=== PATIENT | female | born 1980 | race African-American/Black ===

== ENCOUNTER 2024-09-16 00:45 | Day surgery (SDC) | payer OTHER, SELFPAY ==
--- OUTSIDE RECORDS SUMMARY | 2024-09-16 00:48 | XMS_ITS | Patient Health Summary ---
Author Organization [facility] Address [address] [place] [address] Care Team Providers Care Packing Inspector Name Role Phone Unavailable Primary Care Provider Unavailabl e Note from [facility],non-owned Affiliates and Associated Physician Practices is amultiple site organization consisting of ambulatory clinics and hospital sitesin [place], [place], [place] and [place]. This disclosure is being madepursuant to the Care Everywhere program and may not contain all information available regarding this patient. Last updated 18.[facility] Social History Tobacco Use Types Packs/Day Years Used Date Smoking Tobacco: Never Alcohol Use Standard Drinks/Week Comments No 0 (1 standard drink = 0.6 oz pur e alcohol) Sex and Gender Information Value Date Recorded Sex Assigned at Not on file Gender Identity Not on file Sexual Orientation Not on file Last Filed Vital Signs Vital Sign Reading Time Taken Comments Blood Pressure 138/81 09/11/2014 1:36 PM SALES DEVELOPMENT MANAGER Pulse 86 09/11/2014 1:36 PM SALES DEVELOPMENT MANAGER Temperature 36.2 C (97.1 F) 09/11/2014 1:36 PM SALES DEVELOPMENT MANAGER Respiratory Rate 18 09/11/2014 1:36 PM SALES DEVELOPMENT MANAGER Oxygen Saturation 96% 09/11/2014 1:36 PM SALES DEVELOPMENT MANAGER Inhaled Oxygen Concentration - - Weight 122.5 kg (270 lb) 09/11/2014 1:36 PM SALES DEVELOPMENT MANAGER Height 162.6 cm (5' 4 ) 09/11/2014 1:36 PM SALES DEVELOPMENT MANAGER Body Mass Index 46.35 09/11/2014 1:36 PM SALES DEVELOPMENT MANAGER Procedures * XR WRIST LEFT 3VW OR MORE(Performed 09/11/2014) * CULTURE AEROBIC(Performed 07/02/2014) Results * XR WRIST LEFT 3VW OR MORE (09/11/2014 2:24 PM SALES DEVELOPMENT MANAGER) Anatomical Region Laterality Modality Wrist / Hand Other Impressions 09/11/2014 3:30 PM SALES DEVELOPMENT MANAGER IMPRESSION: 1. No acute osseous injury. Report dictated by Yuki Patrick M.D. I, Dr. ELISEO PRICE M.D. have personally reviewed and interpreted this examination/study. This report was electronically signed by ELISEO PRICE M.D. on 09/11/2014 3:30 PM . Narrative 09/11/2014 3:30 PM SALES DEVELOPMENT MANAGER EXAM: Left wrist, 3 views (PA, oblique, lateral) HISTORY: Nontraumatic wrist pain COMPARISON: None available FINDINGS: No acute fracture or dislocation is identified. A well-corticated 4 mm osseous fragment superior to the ulnar styloid may represent an accessory ossicle or sequela of prior injury. The joint spaces are normal. There is mild soft tissue swelling in the dorsal aspect of the distal forearm. Procedure Note Eliseo Price MD - 10/05/2017 EXAM: Left wrist, 3 views (PA, oblique, lateral) HISTORY: Nontraumatic wrist pain COMPARISON: None available FINDINGS: No acute fracture or dislocation is identified. A well-corticated 4 mmosseous fragment superior to the ulnar styloid may represent an accessoryossicle or sequela of prior injury. The joint spaces are normal. There ismild soft tissue swelling in the dorsal aspect of the distal forearm. IMPRESSION IMPRESSION: 1. No acute osseous injury. Report dictated by Yuki Patrick M.D. I, Dr. ELISEO PRICE M.D. have personally reviewed and interpreted thisexamination/study. This report was electronically signed by ELISEO PRICE M.D. on 09/11/20143:30 PM . Ean Linda MedinaWard DO DIAGNOSTIC IMAGING O RDERABLES * CULTURE AEROBIC (07/02/2014 10:00 PM SALES DEVELOPMENT MANAGER) Culture Aerobic No Growth at 24 hours [facility] Culture Aerobic Growth after 48 hours of urogenital/s kin alexis [facility] Gram Stain Many Gram variable bacilli [facility] Gram Stain Few Gram positive cocci in pairs [facility] Vagina 07/02/2014 10:0 0 PM SALES DEVELOPMENT MANAGER 07/03/2014 9:46 AM SALES DEVELOPMENT MANAGER Narrative [facility] - 07/06/2014 11:35 AM SALES DEVELOPMENT MANAGER AndersonSpecimen#[id number] Ghanshyam Loc/Rm/Bed: ED// GI LAB Source: endocervical Gram Stains are routinely screened for the presence of Polymorphonuclear Cells. Historical Provider LAB - MICROBIOLOG Y ORDERABLES [facility] [address] [phone]
--- OUTSIDE RECORDS SUMMARY | 2024-09-16 00:48 | XMS_ITS | Clinical Summary ---
Author Organization [facility] Address [address] [place] [address] Care Team Providers Care Automation And Controls Manager Name Role Phone Rachel Stone NP Primary Care Provider [phone] [phone] Allergies Active Allergy Reactions Criticality Noted Date Comments Latex Rash Medium 10/27/2021 Morphine Mental status changes Low 01/23/2020 Medications albuterol HFA (PROVENTIL HFA,VENTOLIN HFA,PROAIR HFA) 90 mcg/actuation inhaler Inhale 2 puffs every 4 (four) hours as needed for wheezing 1 each 03/29/20 21 Active losartan (COZAAR) 25 mg tablet Take 1 tablet (25 mg total) by mouth daily 60 tablet 10/28/19 22 Active lidocaine (LIDODERM) 5 % Place 1 patch on the skin daily for 7 days Remove & discard patch within 12 hours or as directed by MD. 7 patch 04/29/20 23 Active cyanocobalamin (Vitamin B-12) 1,000 mcg/mL injection Inject 1 mL (1,000 mcg total) into the muscle as instructed once a week 07/20/19 25 Active ferrous sulfate 325 mg (65 mg of elemental iron) tablet Take 1 tablet (325 mg total) by mouth daily with breakfast 10/04/19 23 Active Lactobacillus acidophilus 500 million cell tablet Take 1 tablet every day by oral route for 30 days. 07/24/19 25 Active phentermine (ADIPEX-P) 37.5 mg tabletIndicatio ns:Weight Loss Management for Obese Patient (BMI >= 30) Take 1 tablet (37.5 mg total) by mouth daily before breakfast 30 tablet 2 08/11/19 25 025 Active hydroCHLOROthia zide (HYDRODIURIL) 25 mg tablet Take 1 tablet (25 mg total) by mouth daily 30 tablet 01/31/20 21 021 Discontinued Active Problems Problem Noted Date Diagnosed Date Class 3 severe obesity due t o excess calories without serious comorbidity with body mass index (BMI) of 45.0 to 49.9 in adult 08/11/2024 Encounters Date Type Department Care Team Description 08/11/2024 1:15 PM SUPERVISOR RESIDENTIAL Office Visit [facility] Family Medicine at [address] [address] Scottie Valdes MD Class 3 severe obesity due to excess calories without serious comorbidity with body mass index (BMI) of 45.0 to 49.9 in adult (HCC) (Primary Dx) 08/03/2024 12:00 PM SUPERVISOR RESIDENTIAL - 08/03/2024 11:59 PM SUPERVISOR RESIDENTIAL Hospital Encounter [facility] Diagnostic Imaging [address] [place] [address] Pain in joint of right knee; Pain in joint of left knee Discharge Disposition: Discharge to home or self care 07/31/2024 Telephone [facility] Family Medicine at [address] [phone] Rachel Stone DIRECTOR OF SCIENCE Lvm to schedule for new patient for wt mngt and seminar from Last 3 Months Social History Tobacco Use Types Packs/Day Years Used Date Smoking Tobacco: Some Days Alcohol Use Standard Drinks/Week Comments Yes 0 (1 standard drink = 0.6 oz pur e alcohol) Personal Safety Answer Date Recorded Have you ever been in or are you currently in a harmful physical or emotional relationship or is someone making you feel afraid or unsafe? Denies 04/29/2023 Comments No Sex and Gender Information Value Date Recorded Sex Assigned at Not on file Legal Sex Female 9:11 PM SUPERVISOR RESIDENTIAL Gender Identity Not on file Sexual Orientation Not on file Obstetrics History Last Filed Vital Signs Vital Sign Reading Time Taken Comments Blood Pressure 126/84 08/11/2024 1:18 PM SUPERVISOR RESIDENTIAL Pulse 84 08/11/2024 1:18 PM SUPERVISOR RESIDENTIAL Temperature 36.9 C (98.4 F) 08/11/2024 1:18 PM SUPERVISOR RESIDENTIAL Respiratory Rate 16 08/11/2024 1:18 PM SUPERVISOR RESIDENTIAL Oxygen Saturation 95% 08/11/2024 1:18 PM SUPERVISOR RESIDENTIAL Inhaled Oxygen Concentration - - Weight 130.2 kg (287 lb 1.6 oz) 08/11/2024 1:18 PM SUPERVISOR RESIDENTIAL Height 162.6 cm (5' 4 ) 08/11/2024 1:18 PM SUPERVISOR RESIDENTIAL Body Mass Index 49.28 08/11/2024 1:18 PM SUPERVISOR RESIDENTIAL Plan of Treatment Health Maintenance Due Date Last Done Comments Breast Cancer Screening-Mammogram 1979 Cervical Cancer Screening 1979 Depression Screening 1979 Hepatitis C Screening 1979 DTaP/Tdap/Td Vaccine (1 - Tdap) 09/18/1990 Varicella Vaccines (1 of 2 - 13+ 2-dose series) 09/18/1992 Hepatitis B Screening 09/18/1997 Regular Well Visit/Exam 18-64 09/18/1997 Pneumococcal vaccine <65 (1 of 2 - PCV) 09/18/1998 Covid-19 Vaccine (3 - 2023-2 5 season) 2024 10/27/2021, 07/04/2021 Influenza Vaccine (#1) 2024 HPV Vaccines Aged Out No longer eligi ble based on patient's age to complete this topic Procedures Procedure Name Priority Date/Time Associated Diagnosis Comments XR KNEE LEFT 3 VIEWS Schedule Routine, Read Routine (OP Routine) 08/03/2024 12:35 PM SUPERVISOR RESIDENTIAL Pain in joint of left knee XR KNEE RIGHT 3 VIEWS Schedule Routine, Read Routine (OP Routine) 08/03/2024 12:35 PM SUPERVISOR RESIDENTIAL Pain in joint of right knee from Last 3 Months Results * XR Knee Right 3 Views (08/03/2024 12:35 PM SUPERVISOR RESIDENTIAL) Anatomical Region Laterality Modality Lower Extremities, Knee Right Computed Radiography 08/03/2024 5:30 PM SUPERVISOR RESIDENTIAL Narrative 08/03/2024 5:31 PM SUPERVISOR RESIDENTIAL EXAM DESCRIPTION: XR KNEE RIGHT 3 VIEWS XR KNEE LEFT 3 VIEWS REASON FOR STUDY: Pain of right knee region Pain of left knee region Pt sts bilateral knee pain and swelling. Reports fluid build up x2 yrs. NKI. Pt ambulatory. FINDINGS: Three views each knee submitted with comparison 04/29/2023. No acute fracture. Alignment is normal. There is mild lateral and patellofemoral bicompartmental bilateral knee osteoarthritis. Small effusions are present. IMPRESSION: Mild lateral and patellofemoral bicompartmental bilateral knee osteoarthritis with small effusions. THIS IS AN ELECTRONICALLY VERIFIED FINAL REPORT 08/03/2024 5:31 PM - Electronically signed by Carlos A Peters M.D. T: Report ID: [id number] Reading Location: [id number] Procedure Note Carlos A Peters MD - 08/03/2024 EXAM DESCRIPTION: XR KNEE RIGHT 3 VIEWS XR KNEE LEFT 3 VIEWS REASON FOR STUDY: Pain of right knee region Pain of left knee region Pt sts bilateral knee pain and swelling. Reports fluid build up x2 yrs.NKI. Pt ambulatory. FINDINGS: Three views each knee submitted with comparison 04/29/2023. No acute fracture. Alignment is normal. There is mild lateral and patellofemoral bicompartmental bilateral knee osteoarthritis. Smalleffusions are present. IMPRESSION: Mild lateral and patellofemoral bicompartmental bilateral kneeosteoarthritis with small effusions. THIS IS AN ELECTRONICALLY VERIFIED FINAL REPORT 08/03/2024 5:31 PM - Electronically signed by Carlos A Peters M.D. T: Report ID: [id number] Reading Location: [id number] us Rachel Stone DIRECTOR OF SCIENCE IMG XR PROCEDURES Final Res ult * XR Knee Left 3 Views (08/03/2024 12:35 PM SUPERVISOR RESIDENTIAL) Anatomical Region Laterality Modality Lower Extremities, Knee Left Computed Radiography 08/03/2024 5:30 PM SUPERVISOR RESIDENTIAL Narrative 08/03/2024 5:31 PM SUPERVISOR RESIDENTIAL EXAM DESCRIPTION: XR KNEE RIGHT 3 VIEWS XR KNEE LEFT 3 VIEWS REASON FOR STUDY: Pain of right knee region Pain of left knee region Pt sts bilateral knee pain and swelling. Reports fluid build up x2 yrs. NKI. Pt ambulatory. FINDINGS: Three views each knee submitted with comparison 04/29/2023. No acute fracture. Alignment is normal. There is mild lateral and patellofemoral bicompartmental bilateral knee osteoarthritis. Small effusions are present. IMPRESSION: Mild lateral and patellofemoral bicompartmental bilateral knee osteoarthritis with small effusions. THIS IS AN ELECTRONICALLY VERIFIED FINAL REPORT 08/03/2024 5:31 PM - Electronically signed by Carlos A Peters M.D. T: Report ID: [id number] Reading Location: [id number] Procedure Note Carlos A Peters MD - 08/03/2024 EXAM DESCRIPTION: XR KNEE RIGHT 3 VIEWS XR KNEE LEFT 3 VIEWS REASON FOR STUDY: Pain of right knee region Pain of left knee region Pt sts bilateral knee pain and swelling. Reports fluid build up x2 yrs.NKI. Pt ambulatory. FINDINGS: Three views each knee submitted with comparison 04/29/2023. No acute fracture. Alignment is normal. There is mild lateral and patellofemoral bicompartmental bilateral knee osteoarthritis. Smalleffusions are present. IMPRESSION: Mild lateral and patellofemoral bicompartmental bilateral kneeosteoarthritis with small effusions. THIS IS AN ELECTRONICALLY VERIFIED FINAL REPORT 08/03/2024 5:31 PM - Electronically signed by Carlos A Peters M.D. T: Report ID: [id number] Reading Location: [place] [address] Rachel Stone DIRECTOR OF SCIENCE IMG XR PROCEDURES Final Res ult from Last 3 Months Insurance [employer] [facility] [employer] Care Teams Automation And Controls Manager Relationship Specialty Start Date End Date Rachel Stone NP PCP - General Family Medicine 10/16/22
--- OUTSIDE RECORDS SUMMARY | 2024-09-16 00:48 | XMS_ITS | Referral Summary ---
Author Organization [facility] Address [address] [place] [phone] Care Team Providers Care Grading Supervisor Name Role Phone Rachel Stone NP Primary Care Provider [phone] Encounters Date Type Department Care Team Description 08/11/2024 1:15 PM FAMILY PRESERVATION OFFICER Office Visit [facility] Family Medicine at [address] [place] [address] Scottie Valdes MD Class 3 severe obesity due to excess calories without serious comorbidity with body mass index (BMI) of 45.0 to 49.9 in adult (HCC) (Primary Dx) 08/03/2024 12:00 PM FAMILY PRESERVATION OFFICER - 08/03/2024 11:59 PM FAMILY PRESERVATION OFFICER Hospital Encounter [facility] Diagnostic Imaging [address] [place] [phone] Pain in joint of right knee; Pain in joint of left knee Discharge Disposition: Discharge to home or self care 07/31/2024 Telephone [facility] Family Medicine at [address] [place] [address] Rachel Stone NP Lvm to schedule for new patient for wt mngt and seminar from Last 3 Months Allergies Active Allergy Reactions Criticality Noted Date [...] within 12 hours or as directed by . 7 patch 04/29/20 23 Active cyanocobalamin (Vitamin [...] of 45.0 to 49.9 in adult 08/11/2024 Social History Tobacco Use Types Packs/Day Years [...] on file Legal Sex Female 9:11 PM FAMILY PRESERVATION OFFICER Gender Identity Not on file Sexual Orientation Not on file Last Filed Vital Signs Vital Sign Reading Time Taken Comments Blood Pressure 126/84 08/11/2024 1:18 PM FAMILY PRESERVATION OFFICER Pulse 84 08/11/2024 1:18 PM FAMILY PRESERVATION OFFICER Temperature 36.9 C (98.4 F) 08/11/2024 1:18 PM FAMILY PRESERVATION OFFICER Respiratory Rate 16 08/11/2024 1:18 PM FAMILY PRESERVATION OFFICER Oxygen Saturation 95% 08/11/2024 1:18 PM FAMILY PRESERVATION OFFICER Inhaled Oxygen Concentration - - Weight 130.2 kg (287 lb 1.6 oz) 08/11/2024 1:18 PM FAMILY PRESERVATION OFFICER Height 162.6 cm (5' 4 ) 08/11/2024 1:18 PM FAMILY PRESERVATION OFFICER Body Mass Index 49.28 08/11/2024 1:18 PM FAMILY PRESERVATION OFFICER Plan of Treatment Not on file Procedures Procedure Name Priority Date/Time Associated Diagnosis Comments XR KNEE LEFT 3 VIEWS Schedule Routine, Read Routine (OP Routine) 08/03/2024 12:35 PM FAMILY PRESERVATION OFFICER Pain in joint of left knee XR KNEE RIGHT 3 VIEWS Schedule Routine, Read Routine (OP Routine) 08/03/2024 12:35 PM FAMILY PRESERVATION OFFICER Pain in joint of right knee from Last 3 Months Results * XR Knee Right 3 Views (08/03/2024 12:35 PM FAMILY PRESERVATION OFFICER) Anatomical Region Laterality Modality Lower Extremities, Knee Right Computed Radiography 08/03/2024 5:30 PM FAMILY PRESERVATION OFFICER Narrative 08/03/2024 5:31 PM FAMILY PRESERVATION OFFICER EXAM DESCRIPTION: XR KNEE RIGHT 3 VIEWS [...] Carlos A Peters M.D. T: Report ID: [id number] Reading Location: [id number] Procedure Note Carlos A Peters MD - [...] Carlos A Peters M.D. T: Report ID: [id number] Reading Location: [id number] us Rachel Stone HERB COUNSELOR IMG XR PROCEDURES Final Res ult * XR Knee Left 3 Views (08/03/2024 12:35 PM FAMILY PRESERVATION OFFICER) Anatomical Region Laterality Modality Lower Extremities, Knee Left Computed Radiography 08/03/2024 5:30 PM FAMILY PRESERVATION OFFICER Narrative 08/03/2024 5:31 PM FAMILY PRESERVATION OFFICER EXAM DESCRIPTION: XR KNEE RIGHT 3 VIEWS [...] Carlos A Peters M.D. T: Report ID: [id number] Reading Location: [id number] Procedure Note Carlos A Peters MD - [...] Carlos A Peters M.D. T: Report ID: [id number] Reading Location: [place] [address] Rachel Stone HERB COUNSELOR IMG XR PROCEDURES Final Res ult from Last [address] [place] [address] [place] [address] [facility] [place] Care Teams Grading Supervisor Relationship Specialty Start Date End Date Rachel Stone NP PCP - General Family Medicine 10/16/22
--- OUTSIDE RECORDS SUMMARY | 2024-09-16 00:48 | XMS_ITS | Clinical Summary ---
Author Organization [facility] Address [address] [place] [address] Phone Care Team Providers Care Market Director Name Role Phone Unavailable Primary Care Provider Unavailabl e Allergies Active Allergy Reactions Criticality Noted Date Comments Morphine 01/23/2020 Medications No known medications Active Problems No known active problems Social History Tobacco Use Types Packs/Day Years Used Date Smoking Tobacco: Never Smokeless Tobacco: Never Intimate Partner Safety Answer Date Rec orded Intimate Partner Safety Not At Risk 09/06/19 24 Intimate Partner Safety Not At Risk 09/06/19 24 Intimate Partner Safety Not At Risk 09/06/19 24 Intimate Partner Safety Not At Risk 09/06/19 24 Intimate Partner Safety Not on file 09/06/19 24 Comments Unknown Sex and Gender Information Value Date Recorded Sex Assigned at Not on file Legal Sex Female 4:15 PM CALL CENTER SUPPORT REPRESENTATIVE Gender Identity Not on file Sexual Orientation Not on file Last Filed Vital Signs Vital Sign Reading Time Taken Comments Blood Pressure 138/90 01/23/2020 9:13 PM CDT Pulse 90 01/23/2020 9:13 PM CDT Temperature 37 C (98.6 F) 01/23/2020 9:13 PM CDT Respiratory Rate 20 01/23/2020 9:13 PM CDT Oxygen Saturation 99% 01/23/2020 9:13 PM CDT Inhaled Oxygen Concentration - - Weight 127 kg (280 lb) 01/09/2018 3:53 AM CDT Height 162.6 cm (5' 4 ) 01/23/2020 9:16 PM CDT Body Mass Index 48.06 01/09/2018 3:53 AM CDT Plan of Treatment Health Maintenance Due Date Last Done Comments Annual Depression Screening 09/18/1990 Annual Physical 09/18/1997 Hepatitis C Antibody Screen 09/18/1997 DTap/Tdap/Td Vaccines (1 - Tdap) 09/18/1998 Cervical Cancer Screening 09/18/2000 Mammogram 2019 Influenza Vaccine 03/08/2024 Insurance [facility]
--- OUTSIDE RECORDS SUMMARY | 2024-09-16 00:48 | XMS_ITS | Referral Summary ---
Author Organization [facility] Address [address] [place] [address] Care Team Providers Care Health Information Internship Name Role Phone Unavailable Primary Care Provider Unavailabl e Source Comments [facility],non-owned Affiliates and Associated Physician Practices is amultiple site organization consisting of ambulatory clinics and hospital sitesin [place], [place], [place] and [place]. This disclosure is being madepursuant to the Care Everywhere program and may not contain all information available regarding this patient. Last updated 18.[facility] Social History Tobacco Use Types Packs/Day Years [...] Comments Blood Pressure 138/81 09/11/2014 1:36 PM WARDROBE SUPERVISOR Pulse 86 09/11/2014 1:36 PM WARDROBE SUPERVISOR Temperature 36.2 C (97.1 F) 09/11/2014 1:36 PM WARDROBE SUPERVISOR Respiratory Rate 18 09/11/2014 1:36 PM WARDROBE SUPERVISOR Oxygen Saturation 96% 09/11/2014 1:36 PM WARDROBE SUPERVISOR Inhaled Oxygen Concentration - - Weight 122.5 kg (270 lb) 09/11/2014 1:36 PM WARDROBE SUPERVISOR Height 162.6 cm (5' 4 ) 09/11/2014 1:36 PM WARDROBE SUPERVISOR Body Mass Index 46.35 09/11/2014 1:36 PM WARDROBE SUPERVISOR Plan of Treatment Not on file
--- OUTSIDE RECORDS SUMMARY | 2024-09-16 00:48 | XMS_ITS | Clinical Summary ---
Author Organization [facility] Address [address] [place] [address] Care Team Providers Care Director Of Reservations Name Role Phone Unavailable Primary Care Provider Unavailabl e Source Comments [facility],non-owned Affiliates and Associated Physician Practices is amultiple site organization consisting of ambulatory clinics and hospital sitesin [place], [place], [place] and [place]. This disclosure is being madepursuant to the Care Everywhere program and may not contain all information available regarding this patient. Last updated 18.[facility] [place] Social History Tobacco Use Types Packs/Day Years [...] Comments Blood Pressure 138/81 09/11/2014 1:36 PM FORENSIC LOCKSMITH Pulse 86 09/11/2014 1:36 PM FORENSIC LOCKSMITH Temperature 36.2 C (97.1 F) 09/11/2014 1:36 PM FORENSIC LOCKSMITH Respiratory Rate 18 09/11/2014 1:36 PM FORENSIC LOCKSMITH Oxygen Saturation 96% 09/11/2014 1:36 PM FORENSIC LOCKSMITH Inhaled Oxygen Concentration - - Weight 122.5 kg (270 lb) 09/11/2014 1:36 PM FORENSIC LOCKSMITH Height 162.6 cm (5' 4 ) 09/11/2014 1:36 PM FORENSIC LOCKSMITH Body Mass Index 46.35 09/11/2014 1:36 PM FORENSIC LOCKSMITH Plan of Treatment Health Maintenance Due Date Last Done Comments LIPID TESTING 1979 MAMMOGRAM 1979 PAP SMEAR 1979 HIV SCREENING 09/18/1994 HEPATITIS C SCREENING 09/14/1997 DTAP/TDAP/TD VACCINES (1 - Tdap) 09/18/1998 HEPATITIS B VACCINE (1 of 3 - 19+ 3-dose series) 09/18/1998 COVID-19 VACCINE (1 - 2023-2 5 season) 2024 INFLUENZA VACCINE (#1) 2024 DEPRESSION SCREENING 07/08/2024 ZOSTER VACCINE (1 of 2) 09/18/2029 HIB VACCINE Aged Out No longer eligi ble based on patient's age to complete this topic HPV VACCINE Aged Out No longer eligi ble based on patient's age to complete this topic MENINGOCOCCAL (Group B) VACCINE Aged Out No longer eligible based on patient's age to complete this topic MENINGOCOCCAL VACCINE Aged Out No rosaura tram eligible based on patient's age to complete this topic PNEUMOCOCCAL VACCINE Aged Out No long er eligible based on patient's age to complete this topic
--- OUTSIDE RECORDS SUMMARY | 2024-09-16 00:48 | XMS_ITS | Clinical Summary ---
Author Organization [facility] Address [address] [place] [address] Care Team Providers Care Psychiatric Social Worker Supervisor Name Role Phone None, Provider MD Primary Care Provider Unavaila ble Allergies Active Allergy Reactions Criticality Noted Date Comments Latex Rash Medium 10/27/2021 Morphine Hallucinations Low 01/23/2020 Medications cyanocobalamin (B-12) 1000 MCG/ML injection Inject 1 mL (1,000 mcg total) into the muscle once a week for 30 days. 4 mL 07/20/2024 5 Active Problems Problem Noted Date Diagnosed Date Anemia 06/13/2024 Social History Tobacco Use Types Packs/Day Years Used Date Smoking Tobacco: Never Smokeless Tobacco: Never Tobacco Cessation:Counseling Given: Not Answered Alcohol Use Standard Drinks/Week Comments Not Currently 0 (1 standard drink = 0.6 oz pur e alcohol) [id number] Health Literacy Answer Date Recor ded How often do you need to hav e someone help you when you read instructions, pamphlets, or other written material from your doctor or pharmacy? Rarely 06/13/2024 [employer] Utilities Answer Date Recorded In the past 12 months has e [employer] gas, oil, or water [employer] threatened to shut off services in your home? No 06/13/2024 Humiliation, Afraid, Rape, and Kick questionnair e Answer Date Recorded Within the last year, have y ou been afraid of your partner or ex-partner? No 06/13/2024 Within the last year, have y ou been humiliated or emotionally abused in other ways by your partner or ex-partner? No Within the last year, have y ou been kicked, hit, slapped, or otherwise physically hurt by your partner or ex-partner? No 06/13/2024 Within the last year, have y ou been raped or forced to have any kind of sexual activity by your partner or ex-partner? No 06/13/2024 Social Connection and Isolat ion Panel [NHANES] Answer Date Recorded In a typical week, how many times do you talk on the phone with family, friends, or neighbors? More than three times a week 06/13/2024 How often do you get togethe r with friends or relatives? Once a week 06/13/2024 How often do you attend chur or jew services? More than 4 times per year 06/13/2024 Do you belong to any clubs o r organizations such as scientology groups, unions, [employer] or athletic groups, or school groups? No 06/13/2024 How often do you attend meet ings of the clubs or organizations you belong to? Never 06/13/2024 Are you , , di vorced, , never , or living with a partner? Never 06/13/2024 AUDIT-C Answer Date Recorded Q1: How often do you have a drink containing alcohol? Never 06/13/2024 Q2: How many drinks containi ng alcohol do you have on a typical day when you are drinking? Patient does not drink Q3: How often do you have si x or more drinks on one occasion? Never 06/13/2024 Overall Financial Resource Strain (CARDIA) Answe r Date Recorded How hard is it for you to pa y for the very basics like food, housing, medical care, and heating? Not very hard 06/13/2024 [facility] - Occupational Stress Questionnaire Answer Date Recorded Do you feel stress - tense, restless, nervous, or anxious, or unable to sleep at night because your mind is troubled all the time - these days? Not at all 06/13/2024 Exercise Vital Sign Answer Date Recorde d On average, how many days pe r week do you engage in moderate to strenuous exercise (like a brisk walk)? 5 days 06/13/2024 On average, how many minutes do you engage in exercise at this level? 60 min 06/13/2024 Hunger Vital Sign Answer Date Recorded Within the past 12 months, y ou worried that your food would run out before you got the money to buy more. Never true 06/13/20 24 Within the past 12 months, t he food you bought just didn't last and you didn't have money to get more. Never true 06/13/2024 PRAPARE - Transportation Answer Date Re corded In the past 12 months, has l ack of transportation kept you from medical appointments or from getting medications? No 01/2024 In the past 12 months, has l ack of transportation kept you from meetings, work, or from getting things needed for daily living? No 06/13/2024 Housing Stability Vital Sign Answer Santi e Recorded In the last 12 months, was t here a time when you were not able to pay the mortgage or rent on time? No 06/13/2024 In the past 12 months, how m any times have you moved where you were living? 0 06/13/2024 At any time in the past 12 m [facility], were you homeless or living in a usp (including now)? No 06/13/2024 Comments Unknown Sex and Gender Information Value Date Recorded Sex Assigned at Not on file Legal Sex Female 9:34 PM MOTOR POWER CONNECTOR Gender Identity Not on file Sexual Orientation Not on file Last Filed Vital Signs Vital Sign Reading Time Taken Comments Blood Pressure 141/87 06/14/2024 12:51 PM MOTOR POWER CONNECTOR Pulse 77 06/14/2024 12:51 PM MOTOR POWER CONNECTOR Temperature 37.2 C (99 F) 06/14/2024 12:51 PM MOTOR POWER CONNECTOR Respiratory Rate 16 06/14/2024 12:5 1 PM MOTOR POWER CONNECTOR Oxygen Saturation 100% 06/14/2024 12: 51 PM MOTOR POWER CONNECTOR Inhaled Oxygen Concentration - - Weight 136.8 kg (301 lb 9.4 oz) 06/14/2024 6:41 AM MOTOR POWER CONNECTOR Height 170.2 cm (5' 7 ) 06/12/2024 9:45 PM MOTOR POWER CONNECTOR Body Mass Index 47.24 06/12/2024 9:45 PM MOTOR POWER CONNECTOR Plan of Treatment Health Maintenance Due Date Last Done Comments Cervical Cancer Screening Pa p Smear (Age 30 to 64) Every 3 Years 1979 Annual Physical 09/18/1982 DTaP, Tdap and Td Vaccines ( 1 - Tdap) 09/18/1998 Hepatitis B Vaccines (1 of 3 - 19+ 3-dose series) 09/18/1998 Cervical Cancer Screening Pa p with HPV Testing (Age 30 to 64) Every 5 Years 09/18/2009 Cervical Cancer Screening wi th HPV 09/18/2009 Mammogram Screening 2019 COVID-19 Vaccine (2023-2 5 season) 2024 10/27/2021, 07/04/2021 Influenza Adult (#1) 2024 Hepatitis C Completed 06/13/2024 HPV Vaccines Aged Out No longer eligi ble based on patient's age to complete this topic Meningococcal B Vaccine Aged Out No l onger eligible based on patient's age to complete this topic Meningococcal Vaccine Aged Out No rosaura tram eligible based on patient's age to complete this topic Pneumococcal Vaccine: Pediatrics (0 to 5 Years) and At-Risk Patients (6 to 64 Years) Aged Out No longer eligible b ased on patient's age to complete this topic RSV Immunizations Under 20 Months Aged Out No longer eligible b ased on patient's age to complete this topic Procedures Procedure Name Priority Date/Time Associated Diagnosis Comments HEPATITIS PANEL,ACUTE Routine 06/13/2024 11:42 AM MOTOR POWER CONNECTOR from Last 3 Months or Most Recently Relevant to Health Maintenance Results * HEPATITIS PANEL,ACUTE (06/13/2024 11:42 AM MOTOR POWER CONNECTOR) HEPATITIS B SURFACE AG NON-REACTI VE NON-REACTI VE 06/13/2024 12:56 PM MOTOR POWER CONNECTOR [facility] HEP B CORE IGM NON-REACTI VE NON-REACTI VE 06/13/2024 1:08 PM MOTOR POWER CONNECTOR [facility] HAV IGM NON-REACTI VE NON-REACTI VE 06/13/2024 1:10 PM MOTOR POWER CONNECTOR [facility] HEPATITIS C AB NON-REACTI VE NON-REACTI VE 06/13/2024 1:07 PM MOTOR POWER CONNECTOR [facility] 06/13/2024 11:4 2 AM MOTOR POWER CONNECTOR us Genesis Mitchell MD LABORATORY Final Re sult [facility] [address] [place] [address], from Last 3 Months or Most Recently Relevant to Health Maintenance Insurance MEDICAID Advance Directives * Full Code (Latest Code Status on File) Date Activated Date Inactivated Comments 06/13/2024 2:04 AM 06/14/2024 5:39 PM Care Teams Psychiatric Social Worker Supervisor Relationship Specialty Start Date End Date None, Provider, PCP - General UNKNOWN PHYSICIAN SPECIALTY 06/12/24
[2024-09-16 12:02] VITALS: BP 138/87; PULSE 77; RESP 20; TEMP 36.1; O2SAT 100
[2024-09-16 12:09] LABS: BEDSIDEPREGUCG Negative (Negative)
--- NOTE | 2024-09-16 12:12 | WPDANESEPPF ---
Anes - Initial Pre Proc Eval Procedure: Operation Date: 09/16/24 12:00 Proposed Procedures p Colonoscopy - Skinny Luciano MD Date/Time: 09/16/24 12:12 Surgeon: Skinny Luciano MD Pre Op Diagnosis: Iron deficiency anemia, unspecified Patient Data Age: 43 Gender: F Height: Weight: 122.3 kg Last Vital Signs Temp 36.1 C L 09/16/24 12:02 Pulse 77 09/16/24 12:02 Resp 20 09/16/24 12:02 BP 138/87 09/16/24 12:02 Pulse Ox 77 L 09/16/24 12:02 O2 Del Method Room Air 09/16/24 12:02 Allergies Allergy/AdvReac Type Severity Reaction Status Date / Time latex Allergy Unknown Rash Verified 09/16/24 11:57 morphine Allergy Hallucinati Verified 09/16/24 11:57 ng Home Medications ?Medication ?Instructions ?Recorded ?Confirmed ?Type cyanocobalamin (vitamin B-12) 1,000 mcg 09/15/24 History 1,000 mcg/mL injection solution losartan 25 mg tablet 25 mg PO DAILY 09/15/24 09/16/24 History phentermine 37.5 mg tablet 37.5 mg PO DAILY 09/15/24 09/16/24 History Laboratory Tests 09/16/24 12:02 POC Urine HCG, Qual Negative (Negative) Patient hx anesthesia problems: none Family hx anesthesia problems: none Results Review: All pre-operative results and documents have been reviewed as part of the pre-operative evaluation. [facility] Past Medical History Medical History (Updated 09/16/24 @ 12:13 by Billy Hill MD) Anemia HTN (hypertension) Morbid obesity Social History Social History Years smoked: 15 Smoking status: Former smoker Tobacco type: cigarettes Substance use type: does not use Living arrangements: alone Anes - Eval Final PreProcedure Day of Procedure 09/16/24 12:12 Patient weight: morbidly obese Heart: regular rate and rhythm Lungs: clear to auscultation Airway: Mallampati scale class II Neurological: alert and oriented Last oral intake: >/= 8 hours ASA classification: III Emergent: no Anesthetic plan: proceed Results Review: All pre-operative results and documents have been reviewed as part of the pre-operative evaluation. Informed Consent: The patient's anesthetic plan and its attendant risks and benefits were discussed with the patient/family/POA. Questions were solicited and answers provided to the satisfaction of the patient/family/POA.
[2024-09-16] MEDS: LACTATED RINGERS 1,000 ML 150 ML IV CONT (12:21)
--- NOTE | 2024-09-16 13:23 | PM.HPGS ---
History of Present Illness History of Present Illness Consent: Risks, benefits, and alternatives have been discussed and questions answered. Patient agrees to proceed with procedure. Chief complaint: Iron deficiency anemia, unspecified Narrative: Frandy Mejia is a 43 year old female here for first colonoscopy, h/o PARUL Review of Systems Review of Systems: All systems reviewed & are unremarkable except as noted in HPI and below PMFSH Past Medical History Medical History (Updated 09/16/24 @ 13:23 by Skinny Luciano MD) Iron deficiency anemia Anemia HTN (hypertension) Morbid obesity Social History Social History Years smoked: 15 Smoking status: Former smoker Tobacco type: cigarettes Substance use type: does not use Living arrangements: alone Meds Home Medications and Allergies Home Medications ?Medication ?Instructions ?Recorded ?Confirmed ?Type cyanocobalamin (vitamin B-12) 1,000 mcg 09/15/24 History 1,000 mcg/mL injection solution losartan 25 mg tablet 25 mg PO DAILY 09/15/24 09/16/24 History phentermine 37.5 mg tablet 37.5 mg PO DAILY 09/15/24 09/16/24 History Allergies Allergy/AdvReac Type Severity Reaction Status Date / Time latex Allergy Unknown Rash Verified 09/16/24 11:57 morphine Allergy Hallucinati Verified 09/16/24 11:57 ng Vital Signs Vital Signs - 24 hr 09/16/24 12:02 Temperature 96.9 F L Pulse Rate 77 Respiratory Rate 20 Blood Pressure 138/87 Pulse Oximetry 77 L Oxygen Delivery Room Air Exam Const: General: comfortable and no acute distress HENMT: Face/Nose/Sinus: Normal nares present Eyes: General: appearance normal, both eyes and all related structures Neck: Neck: no JVD Resp: Auscultation: clear to auscultation bilaterally Cardio: Rate: regular rate Rhythm: regular rhythm GI: Inspection: non-distended GI Palp: Yes Soft to palpation Skin: General skin exam: normal color Neuro: Speech: normal speech Extrem: General: normal to inspection Psych: Mental Status: mental status grossly normal Assessment and Plan Assessment and plan (1) Iron deficiency anemia: Code(s): D50.9 - Iron deficiency anemia, unspecified Status: Acute Assessment and Plan: colonoscopy
[2024-09-16 13:40] VITALS: BP 121/74; PULSE 69; RESP 21; O2SAT 100
[2024-09-16 13:50] VITALS: BP 117/78; PULSE 73; RESP 20; O2SAT 98
[2024-09-16 14:00] VITALS: BP 116/87; PULSE 69; RESP 20; O2SAT 100
== END 2024-09-16 14:30 | disposition home or self-care (01) ==
PROVIDERS: Anesthesiology; PCP Midwife; Visit Provider Internal Medicine Gastroenterology
PROC: 0DJD8ZZ Inspection of Lower Intestinal Tract, Via Natural or Artificial Opening Endoscopic (ICD-10-PCS; CPT 45378; principal; 2024-09-16 12:00)
DX: K64.8 Other hemorrhoids (principal); K57.30 Diverticulosis of large intestine without perforation or abscess without bleeding; D50.9 Iron deficiency anemia, unspecified; I10 Essential (primary) hypertension; Z87.891 Personal history of nicotine dependence
CPT/HCPCS: 45378; J2003; J2704; J7120

== ENCOUNTER 2025-05-10 17:04 | Observation (INO) | payer OTHER, SELFPAY ==
[2025-05-10] VITALS (12 sets, daily range): BP systolic 115–160; BP diastolic 83–99; PULSE 58–83; RESP 15–21; TEMP 36.6; O2SAT 96–100
--- NOTE | ~2025-05-10 | XR_ITS ---
XR finger 4th RT min 2V 05/10/2025 18:55 Indication: Right fourth finger pain Procedure: 3 views right fourth finger Comparison: No prior studies for comparison. Findings: No fracture, subluxation or dislocation. Mild polyarticular osteoarthritis. No soft tissue abnormality. No foreign bodies. Impression: 1: No acute fracture. Reviewed, dictated and finalized at location O. RANCE EXAMINER Impression: 1: No acute fracture.
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
--- NOTE | ~2025-05-10 | CT_ITS ---
EXAMINATION: CT cervical spine wo con DATE: 05/10/2025 19:42 INDICATION: Neck pain TECHNIQUE: Computed tomography (CT) of the cervical spine was performed without intravenous contrast. The dose-length product was 1050 mGy-cm. COMPARISON: None FINDINGS: Straightening of cervical lordosis. Odontoid process is normal. Craniovertebral junction is normal. No acute fracture or traumatic malalignment. Mild levocurvature. Lung apices are unremarkable. No paraspinal soft tissue abnormality. No paraspinal soft tissue abnormality. IMPRESSION: 1. No acute fracture. Reviewed, dictated and finalized at location O. TY ATTENDANT IMPRESSION: 1. No acute fracture.
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
--- NOTE | ~2025-05-10 | XR_ITS ---
XR wrist LT 2V INDICATION: pain COMPARISON: None FINDINGS: Frontal, lateral and oblique views of the left wrist demonstrate no acute fracture or dislocation. IMPRESSION: No acute fracture or dislocation. Reviewed, dictated and finalized at location S. ECTOR AIR CARRIER
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
--- OUTSIDE RECORDS SUMMARY | 2025-05-10 17:55 | XMS_ITS | Clinical Summary ---
Author Organization [facility] Address [address] [place] [id number] Care Team Providers Care Nutrition Consultant Name Role Phone None, Provider MD Primary Care Provider Unavaila ble Allergies Active Allergy Reactions Criticality Noted Date Comments Latex Rash Medium 10/27/2021 Morphine Hallucinations Low 01/23/2020 Medications No known medications Active Problems Problem Noted Date Diagnosed Date [...] from your doctor or pharmacy? Rarely 06/13/2024 [facility] Utilities Answer Date Recorded In the past 12 months has e [employer], gas, oil, or water [employer] threatened to shut off services in your [...] or ex-partner? No 06/13/2024 Social Connection and Isolation Panel Answer Date Recorded In a typical week, how many times do you talk on the phone with family, friends, or neighbors? More than three times a week 06/13/2024 How often do you get togethe r with friends or relatives? Once a week 06/13/2024 How often do you attend chur ch or presybeterian services? More than 4 times per year 06/13/2024 Do you belong to any clubs o r organizations such as buddhist groups, unions, fraternal or athletic groups, or school groups? No [...] care, and heating? Not very hard 06/13/2024 [facility] - Occupational Stress [...] any time in the past 12 m [facility], were you homeless or living in a chcf (including now)? No 06/13/2024 Comments Unknown Sex and Gender Information Value Date Recorded Sex Assigned at Not on file Legal Sex Female 9:34 PM AUTO INSPECTOR Gender Identity Not on file Sexual Orientation Not on file Last Filed Vital Signs Vital Sign Reading Time Taken Comments Blood Pressure 141/87 06/14/2024 12:51 PM AUTO INSPECTOR Pulse 77 06/14/2024 12:51 PM AUTO INSPECTOR Temperature 37.2 C (99 F) 06/14/2024 12:51 PM AUTO INSPECTOR Respiratory Rate 16 06/14/2024 12:5 1 PM AUTO INSPECTOR Oxygen Saturation 100% 06/14/2024 12: 51 PM AUTO INSPECTOR Inhaled Oxygen Concentration - - Weight 136.8 kg (301 lb 9.4 oz) 06/14/2024 6:41 AM AUTO INSPECTOR Height 170.2 cm (5' 7) 06/12/2024 9:45 PM AUTO INSPECTOR Body Mass Index 47.24 06/12/2024 9:45 PM AUTO INSPECTOR Plan of Treatment Health Maintenance Due Date Last Done Comments Cervical Cancer Screening Pa p Smear (Age 30 to 64) Every 3 Years 1979 Annual Physical 09/18/1982 DTaP, Tdap and Td Vaccines ( 1 - Tdap) 09/18/1998 Hepatitis B Vaccines (1 of 3 - 19+ 3-dose series) 09/18/1998 HPV Vaccines (1 - 3-dose SCD M series) 09/18/2006 Cervical Cancer Screening Pa p with HPV Testing (Age 30 to 64) Every 5 Years 09/18/2009 Cervical Cancer Screening wi HPV 09/18/2009 Mammogram Screening 2019 COVID-19 Vaccine (3 - 2024-2 6 season) 2025 10/27/2021, 07/04/2021 Influenza Adult (#1) 2025 Colorectal Cancer Screening FIT/FOBT (1 Year) 06/14/2025 06/14/2024 Hepatitis C Completed 06/13/2024 Hepatitis A Vaccines Aged Out No long er eligible based on patient's age to complete this topic Meningococcal B Vaccine Aged Out No l onger eligible based on patient's age to complete this topic Meningococcal Vaccine Aged Out No rosaura tram eligible based on patient's age to complete this topic Pneumococcal Vaccine: Pediatrics (0 to 5 Years) and At-Risk Patients (6 to 49 Years) Aged Out No longer eligible b ased on patient's age to complete this topic RSV Immunizations Under 20 Months Aged Out No longer eligible b ased on patient's age to complete this topic Procedures Procedure Name Priority Date/Time Associated Diagnosis Comments OCCULT BLOOD, FECES STAT 06/14/2024 8 :45 AM AUTO INSPECTOR HEPATITIS PANEL,ACUTE Routine 06/13/2024 11:42 AM AUTO INSPECTOR from Last 3 Months or Most Recently Relevant to Health Maintenance Results * OCCULT BLOOD, FECES (06/14/2024 8:45 AM AUTO INSPECTOR) Pathologist [facility] OCCULT BLOOD FECAL NEGATIVE 06/14/2024 9:24 AM AUTO INSPECTOR [facility] STOOL SPECIMEN / Unknown 06/14/2024 8:45 AM AUTO INSPECTOR Genesis Mitchell MD BODY FLUIDS AND STOOLS O RDERABLES Final Result [facility] [address] [place] [address], * HEPATITIS PANEL,ACUTE (06/13/2024 11:42 AM AUTO INSPECTOR) HEPATITIS B SURFACE AG NON-REACTI VE NON-REACTI VE 06/13/2024 12:56 PM AUTO INSPECTOR [facility] HEP B CORE IGM NON-REACTI VE NON-REACTI VE 06/13/2024 1:08 PM AUTO INSPECTOR [facility] HAV IGM NON-REACTI VE NON-REACTI VE 06/13/2024 1:10 PM AUTO INSPECTOR [facility] HEPATITIS C AB NON-REACTI VE NON-REACTI VE 06/13/2024 1:07 PM AUTO INSPECTOR [facility] 06/13/2024 11:4 2 AM AUTO INSPECTOR Genesis Mitchell MD LABORATORY Final Re sult [facility] [address] [place] [address], from Last 3 Months or Most Recently Relevant to Health Maintenance Insurance Advance Directives * Full Code (Latest Code Status on File) Date Activated Date Inactivated Comments 06/13/2024 2:04 AM 06/14/2024 5:39 PM Care Teams Nutrition Consultant Relationship Specialty Start Date End Date None, Provider, MD PCP - General UNKNOWN PHYSICIAN SPECIALTY 06/12/24
--- OUTSIDE RECORDS SUMMARY | 2025-05-10 17:55 | XMS_ITS | Clinical Summary ---
Author Organization [facility] Address [address] [facility] [place] [address] Phone Care Team Providers Care Lending Advisor Name Role Phone Unavailable Primary Care Provider [...] on file Legal Sex Female 4:15 PM MANAGER SYSTEMS Gender Identity Not on file Sexual Orientation [...] 3:53 AM CDT Height 162.6 cm (5' 4) 01/23/2020 9:16 PM CDT Body Mass Index 48.06 01/09/2018 3:53 AM CDT Plan of Treatment Health Maintenance Due Date Last Done Comments Colonoscopy Every 6 Months 1979 Colorectal Cancer Screening Annual FOBT/FIT Test 09/18 Colorectal Cancer Screening Cologuard 1979 Colorectal Cancer Screening Flex Sigmoidoscopy 980 Annual Depression Screening 09/18/1990 Annual Physical 09/18/1997 Hepatitis C Antibody Screen 09/18/1997 DTap/Tdap/Td Vaccines (1 - Tdap) 09/18/1998 Cervical Cancer Screening 09/18/2000 Mammogram 2019 Colorectal CA Screen 10 Year Colonoscopy 09/18/2024 Colorectal Cancer Screening 09/18/2024 Flu Vaccine (#1) 03/08/2025 Influenza Vaccine 03/08/2025 Insurance [employer]
--- OUTSIDE RECORDS SUMMARY | 2025-05-10 17:55 | XMS_ITS | Clinical Summary ---
Author Organization [facility] Address [address], [facility] [address] [place] [address] Phone Care Team Providers Care In Home Sales Representative Name Role Phone Rachel Stone APRN, BUSINESS TECHNOLOGY PROFESSOR Primary Care Provide r Shabbir Chapa DO Unavailable [phone] Allergies Active Allergy Reactions Criticality Noted Date Comments Latex Rash Medium 10/27/2021 Morphine Hallucinations,Other (see Comments) Low 01/23/2020 Medications losartan (COZAAR) 25 MG Tablet Take 25 mg by mouth daily. 10/27/2021 Active Ferrous Sulfate (Iron) 325 (65 Fe) MG Tablet Take by mouth. Active Active Problems Problem Noted Date Diagnosed Date Iron deficiency anemia, unspecified 07/03/2024 HTN (hypertension) 06/26/2024 Iron deficiency 06/26/2024 Family History Relation Name Status Comments Brother Alive Child Alive Father Mother Alive Sister Alive Social History Tobacco Use Types Packs/Day Years Used Date Smoking Tobacco: Never Smokeless Tobacco: Never Tobacco Cessation:Counseling Given: Not Answered Alcohol Use Standard Drinks/Week Comments Not Currently 0 (1 standard drink = 0.6 oz pur e alcohol) Comments Unknown Sex and Gender Information Value Date Recorded Sex Assigned at Not on file Legal Sex Female 10:17 AM CDT Gender Identity Not on file Sexual Orientation Not on file Last Filed Vital Signs Vital Sign Reading Time Taken Comments Blood Pressure 124/74 09/11/2024 11:09 AM TAPROOM ATTENDANT Pulse 86 09/11/2024 11:09 AM TAPROOM ATTENDANT Temperature 36.7 C (98 F) 09/11/2024 11:09 AM TAPROOM ATTENDANT Respiratory Rate 18 09/11/2024 11:09 AM TAPROOM ATTENDANT Oxygen Saturation 97% 09/11/2024 11:09 AM TAPROOM ATTENDANT Inhaled Oxygen Concentration - - Weight 125.6 kg (277 lb) 09/11/2024 11:09 AM TAPROOM ATTENDANT Height 162.6 cm (5' 4) 09/11/2024 11:09 AM TAPROOM ATTENDANT Body Mass Index 47.55 09/11/2024 11:09 AM TAPROOM ATTENDANT Plan of Treatment Health Maintenance Due Date Last Done Comments Mammogram 1979 TdaP Immunization 1979 Hepatitis B Immunization (1 of 3 - 19+ 3-dose series) 09/18/1998 Pap Smear 09/18/2000 Human Papillomavirus (HPV) Immunization (1 - 3-dose SCDM series) 09/18/2006 Cervical Cancer Screening (CCS) 09/18/2009 HPV/Cotest 09/18/2009 Discussion re Starting/Frequency of Mammograms 2019 Cologuard 09/18/2024 Colonoscopy 09/18/2024 Influenza Immunization (#1) 2025 SARS-COV-2 Immunization ( season) 2025 10/27/2021, 07/04/2021 Colorectal Cancer Screening 06/14/2025 Immunochemical Fecal Occult Blood 06/14/2025 06/14/2024 Respiratory Syncytial Virus (RSV) Immunization (Adult) (1 - 1-dose 75+ series) 09/18/2054 Hepatitis C Virus (HCV) Screening Completed 06/13/2024 Meningococcal Immunization (ACWY) Aged Out No longer eligible b ased on patient's age to complete this topic Pneumococcal Immunization Combined Aged Out No longer eligible b ased on patient's age to complete this topic Rotavirus Immunization Aged Out No lo nger eligible based on patient's age to complete this topic Insurance MEDICAID [employer] Care Teams In Home Sales Representative Relationship Specialty Start Date End Date Rachel Stone APRN, BUSINESS TECHNOLOGY PROFESSOR [address] [place] [address] PCP - General Advanced Practice Nurse 10/08/22 Shabbir Chapa DO [address] [place] [phone] Consulting Physician Oncology 07/10/24
--- OUTSIDE RECORDS SUMMARY | 2025-05-10 17:55 | XMS_ITS | Encounter Summary ---
Author Organization [facility] Address [address] [place] [address] Phone Care Team Providers Care Seismographer Name Role Phone Rachel Stone APRN, CHIEF PRIVACY OFFICER Primary Care Provide r Shabbir Chapa DO Unavailable [phone] Encounter Details Date Type Department Care Team (Late st Contact Info) Description 10/09/2024 Telephone [facility] [address] [place] [address] Shabbir Chapa DO [address] [place] [address] Social History Tobacco Use Types Packs/Day Years Used Date Smoking Tobacco: Never Smokeless Tobacco: Never Alcohol Use Standard Drinks/Week Comments Not Currently 0 (1 standard drink = 0.6 oz pur e alcohol) Comments Unknown Sex and Gender Information Value Date Recorded Sex Assigned at Not on file Legal Sex Female 10:17 AM CDT Gender Identity Not on file Sexual Orientation Not on file documented as of this encounter Miscellaneous Notes * Telephone Encounter - Shabbir Chapa DO - 10/09/2024 10:16 AM CDT Have her see me in the next few weeks to see me. * Telephone Encounter - Theodora Costa - 10/09/2024 9:58 AM CDT Valery has called this pt on eight different occasions either leaving a message or giving her the number to get sched for her gastro referral. Pt has not done so. This has been going on since Jul. How would you guys like to proceed? documented in this encounter Plan of Treatment Not on file documented as of this encounter Visit Diagnoses Not on filedocumented in this encounter Care Teams Seismographer Relationship Specialty Start Date End Date Rachel Stone, WEIGHER AND CHARGER, CHIEF PRIVACY OFFICER [address] [place] [address] PCP - General Advanced Practice Nurse 10/08/22 Shabbir Chapa DO [address] [place] [phone] Consulting Physician Oncology 07/10/24 documented as of this encounter
--- OUTSIDE RECORDS SUMMARY | 2025-05-10 17:55 | XMS_ITS | Clinical Summary ---
Author Organization [facility] Address [address] [place] [address] Care Team Providers Care Automobile Or Truck Rental Dispatcher Name Role Phone Rachel Stone NP Primary Care Provider [phone] Allergies Active Allergy Reactions Criticality Noted Date [...] route for 30 days. 07/24/19 25 Active hydroCHLOROthia zide (HYDRODIURIL) 25 mg tablet Take 1 tablet (25 mg total) by mouth daily 30 tablet 01/31/20 21 021 Discontinued Active Problems Problem Noted Date Diagnosed Date Class 3 severe obesity due t o excess calories without serious comorbidity with body mass index (BMI) of 45.0 to 49.9 in adult 08/11/2024 Family History Medical History Relation Name Comments Breast cancer Neg Hx Relation Name Status Comments Sister Magaly Macias Alive Social History Tobacco Use Types Packs/Day [...] on file Legal Sex Female 9:11 PM DIRECTOR FINANCIAL ANALYSIS Gender Identity Not on file Sexual Orientation Not on file Obstetrics History Para Term AB IAB SAB Ectopic Multiple Livin g Live Births 3 3 3 Date Outcome GA Total Labor Labor/2nd/3rd Weight Sex Type Anes PTL Cady A1 A5 Name Clin Term Term Term Last Filed Vital Signs Vital Sign Reading Time Taken Comments Blood Pressure 126/84 08/11/2024 1:18 PM DIRECTOR FINANCIAL ANALYSIS Pulse 84 08/11/2024 1:18 PM DIRECTOR FINANCIAL ANALYSIS Temperature 36.9 C (98.4 F) 08/11/2024 1:18 PM DIRECTOR FINANCIAL ANALYSIS Respiratory Rate 16 08/11/2024 1:18 PM DIRECTOR FINANCIAL ANALYSIS Oxygen Saturation 95% 08/11/2024 1:18 PM DIRECTOR FINANCIAL ANALYSIS Inhaled Oxygen Concentration - - Weight 130.2 kg (287 lb 1.6 oz) 08/11/2024 1:18 PM DIRECTOR FINANCIAL ANALYSIS Height 162.6 cm (5' 4) 08/11/2024 1:18 PM DIRECTOR FINANCIAL ANALYSIS Body Mass Index 49.28 08/11/2024 1:18 PM DIRECTOR FINANCIAL ANALYSIS Plan of Treatment Health Maintenance Due Date Last Done Comments Cervical Cancer Screening 1979 Colon Cancer Screening-Colonoscopy 1979 Depression Screening 1979 Hepatitis C Screening 1979 DTaP/Tdap/Td Vaccine (1 - Tdap) 09/18/1990 Varicella Vaccines (1 of 2 - 13+ 2-dose series) 09/18/1992 Hepatitis B Screening 09/18/1997 Regular Well Visit/Exam 18-64 09/18/1997 Pneumococcal vaccine <65 (1 of 2 - PCV) 09/18/1998 HPV Vaccines (1 - 3-dose SCDM series) 09/18/2006 Covid-19 Vaccine ( season) 2025, 07/04/2021 Influenza Vaccine (#1) 2025 Breast Cancer Screening-Mammogram 09/29/2025 025 Procedures Procedure Name Priority Date/Time Associated Diagnosis Comments SCREENING MAMMOGRAM BILATERAL W RIP Schedule Routine, Read Routine (OP Routine) 09/29/2024 9:09 AM CDT Screening mammogram, encounter for from Last 3 Months or Most Recently Relevant to Health Maintenance Results * Screening Mammogram Bilateral W Rip (09/29/2024 9:09 AM CDT) Anatomical Region Laterality Modality Breast Bilateral Mammography Impressions 09/29/2024 9:54 AM CDT BI-RADS ATLAS category (overall): 1 - Negative There is no mammographic evidence of malignancy. A 1 year screening mammogram is recommended. The patient has been or will be contacted. We recommend annual screening mammography for women at average risk of breast cancer beginning at age 40, based on guidelines of the [employer] (ACR Practice Parameter for the Performance of Screening and Diagnostic Mammography) and [employer]. For women with and elevated risk of breast cancer, please refer to the ACR Practice Parameter for specific screening recommendations. The patient will be entered into a reminder system with a target due date of 1 year for her next screening exam. Narrative 09/29/2024 9:54 AM CDT Screening Mammogram Bilateral W Rip: 09/29/24 The study was acquired using full field digital technology and interpreted from soft copy. 2D digital mammographic views, as well as 3D digital tomosynthesis were performed in the CC and MLO projections. This study was resulted using Computer-Aided Detection (CAD). CLINICAL: Screening mammogram, encounter for. No relevant medical history has been documented for this patient. History of breast cancer in Neg Hx. COMPARISON: Baseline Screening Mammography. No prior mammography is available for comparison. BREAST TISSUE: There are scattered areas of fibroglandular density. FINDINGS: No suspicious masses, suspicious calcifications, or other suspicious findings are seen within either breast. Rachel Stone AGRICULTURAL ENGINEERING TECHNOLOGIST IMG MAMMO PROCEDURES Final Result from Last 3 Months or Most Recently Relevant to Health Maintenance Insurance [facility] Care Teams Automobile Or Truck Rental Dispatcher Relationship Specialty Start Date End Date Rachel Stone NP PCP - General Family Medicine 10/16/22
--- OUTSIDE RECORDS SUMMARY | 2025-05-10 17:55 | XMS_ITS | Clinical Summary ---
Author Organization [facility] Address [address] [place] [address] Care Team Providers Care Traffic Director Name Role Phone Unavailable Primary Care Provider Unavailabl e Source Comments [facility],non-owned Affiliates and Associated Physician Practices is amultiple site organization consisting of ambulatory clinics and hospital sitesin [place], [place], [place] and [place]. This disclosure is being madepursuant to the Care Everywhere program and may not contain all information available regarding this patient. Last updated 18.[facility] Social History Tobacco Use Types Packs/Day Years Used Date Smoking Tobacco: Never Alcohol Use Standard Drinks/Week Comments No 0 (1 standard drink = 0.6 oz pur e alcohol) Comments Unknown Sex and Gender Information Value Date Recorded Sex Assigned at Not on file Legal Sex Female 6:20 PM NEON INSTALLER Gender Identity Not on file Sexual Orientation Not on file Last Filed Vital Signs Vital Sign Reading Time Taken Comments Blood Pressure 138/81 09/11/2014 1:36 PM NEON INSTALLER Pulse 86 09/11/2014 1:36 PM NEON INSTALLER Temperature 36.2 C (97.1 F) 09/11/2014 1:36 PM NEON INSTALLER Respiratory Rate 18 09/11/2014 1:36 PM NEON INSTALLER Oxygen Saturation 96% 09/11/2014 1:36 PM NEON INSTALLER Inhaled Oxygen Concentration - - Weight 122.5 kg (270 lb) 09/11/2014 1:36 PM NEON INSTALLER Height 162.6 cm (5' 4) 09/11/2014 1:36 PM NEON INSTALLER Body Mass Index 46.35 09/11/2014 1:36 PM NEON INSTALLER Plan of Treatment Health Maintenance Due Date Last Done Comments COLOGUARD (AGES 45-75) - COL ON CA SCREENING 1979 COLON MONITORING 1979 COLONOSCOPY - COLON CA SCREENING 1979 CT COLONOGRAPHY - COLON CA SCREENING 1979 Colorectal Cancer Screening 1979 FIT - COLON CA SCREENING 1979 FLEX SIG - COLON CA SCREENING 1979 LIPID TESTING 1979 MAMMOGRAM 1979 HIV SCREENING 09/18/1994 HEPATITIS C SCREENING 09/14/1997 DTAP/TDAP/TD VACCINES (1 - Tdap) 09/18/1998 HEPATITIS B VACCINE (1 of 3 - 19+ 3-dose series) 09/18/1998 PAP SMEAR 09/18/2000 HPV VACCINE (1 - 3-dose SCDM series) 09/18/2006 DEPRESSION SCREENING 07/08/2024 COVID-19 VACCINE (1 - 2023-2 5 season) 2025 INFLUENZA VACCINE (#1) 2025 ZOSTER VACCINE (1 of 2) 09/18/2029 HIB VACCINE Aged Out No longer eligi ble based on patient's age to complete this topic MENINGOCOCCAL (Group B) VACC INE SHARED DECISION-MAKING Aged Out No longer eligibl e based on patient's age to complete this topic MENINGOCOCCAL GROUPS A/C/Y/W VACCINE Aged Out No longer eligible b ased on patient's age to complete this topic PNEUMOCOCCAL VACCINE Aged Out No long er eligible based on patient's age to complete this topic Insurance MEDICAID - OUT OF STATE
--- OUTSIDE RECORDS SUMMARY | 2025-05-10 17:55 | XMS_ITS | Data Portability ---
Author Organization SHANNON Jaxon JOSHUA Address [address] [facility] [place] [address] Care Team Providers Care Transmission Operator Name Role Phone SUSHILRACHEL RADER Primary Care Provider Assessment Encounter Date Assessment Date Assessment LastModified by Organization Details LastModified Time 07/30/2024 07/30/2024 BS-PAS [email or web address] Not available 15:52:29 Plan of Treatment Reminders Order Date Submit Date Provider Last Modified By Organization Details Last Modified Time Details Appointments LAB ONLY 2025 09:00A M Lab Not available Not available Not available Lab RPR (rapid plasma reagin ), serum 2024 025 [facility], [address] [facility], [address], [place], [address], 02/22/2025 15:10:53 vagina l pathog ens panel, MANDO+pr obe, vagina l fluid 2024 025 [facility], [address], [address], [place], [address], 07/27/2024 21:07:19 CMP, serum or plasma 2024 025 [facility], [address] [facility], [address], [place], [address], 07/24/2024 21:08:51 lipid panel, serum 2024 025 [facility], [address], [address], [place], [address], 07/24/2024 21:08:50 HbA1c (hemog lobin A1c), blood 2024 025 [facility], [address], [address], [place], [address], 07/25/2024 03:36:22 TSH + free T4, serum 2024 025 [facility], [address], [address], [place], [address], 07/25/2024 03:36:20 bacter ial vagino sis panel, vagina l 2023 024 [facility], [address] [facility] [address], [place], [address], 08/28/2023 17:01:28 RPR (rapid plasma reagin ), serum 2023 024 [facility], [address] [facility], [address], [place], [address], 08/29/2023 15:11:01 HIV 1 + 2, meanin gful use set 2023 024 [facility], [address] [facility] [address], [address], [place], [address], 08/29/2023 15:11:02 HBsAg (hepat itis B surfac e Ag), EIA, serum 2023 024 [facility], [address] [facility], [address], [place], [address], 08/29/2023 11:14:39 Hepati tis C IgG Ab, qual, serum 2023 024 [facility], [address] [place] [address], [address], [place], [address], 08/29/2023 15:11:00 vagina l pathog ens panel, MANDO+pr obe, vagina l fluid 2022 023 [facility], [address] [place] [address], [address], [place], [address], 10/01/2022 08:09:02 vagina l pathog ens panel, MANDO+pr obe, vagina l fluid 2022 023 [facility], [address] [place] [address], [address], [place], [address], 09/06/2022 06:15:34 Referral weight manage ment referr al 2024 025 KRYSTEN Scottie Valdes MD, [address] [facility] , [place], [address], 05/05/2025 04:24:41 physic al therap ist referr al - bilate ral knee pain 2024 025 [facility], [address], [address], [place], [address], 08/07/2024 12:32:33 bariat eli surger y referr al 2022 023 [facility], [address], [address], [place], [address], 09/05/2022 09:55:21 Procedures None record ed. Surgeries None record ed. Imaging MAMMO, screen ing, bilate ral 2024 025 [facility] Access Centralized Scheduling, Centralized Scheduling, [address] [place], [address], 09/29/2024 10:58:32 XR, knee, 3 view 2024 025 [facility]), [address] [place] [address] , [place], [address], 08/03/2024 18:35:39 XR, knee, 3 view 2024 025 [facility] ([facility]), [address] [place] [address] [place], [address], 08/06/2024 12:25:21 MAMMO, screen ing, digita l, bilate ral 2023 024 [facility], [address] [place] [address], [address], 09/09/2023 12:44:03 US, transv aginal 2022 023 [facility] ([facility]), [address] [facility] [place], [address], 10/16/2022 20:56:15 US, breast 2022 023 [facility] ([facility]), [address], [place], [address], 09/20/2022 10:50:12 MAMMO, screen ing, digita l, bilate ral - US ok if indica wilma 2022 023 [facility] ([facility]), [address], [place], [address], 09/20/2022 10:50:12 Medication Orders penici llin G benzat gilmar 2,400, 000 unit/4 mL intram uscula r syring e 2024 025 abyasma Not available 08/04/2024 14:13:52 Lactob acillu s acidop hilus 500 millio n cell tablet 2024 025 [id number], [address], [place], [id number], 07/24/2024 10:15:39 losart an 25 mg tablet 2024 025 [id number], [address], [place], [id number], 07/24/2024 10:19:47 Bactri m DS 800 mg-160 mg tablet 2022 023 [facility] #[id number], [address], [place], [id number], 08/28/2023 16:17:40 Patient TargetsNo targets recorded. Patient Instructions Encounter Date Encounter Id Patient Instructions Last Modified By Organization Details Last Modified Time 09/04/2022 [id number] breast abscess: care instructions [email or web address] Not available 09/04/2022 18:15:06 A healthy lifestyle: care instructions [email or web address] Not available 09/04/2022 17:26:10 mammogram screening patient instructions [email or web address] Not available 09/04/2022 18:16:52 09/28/2022 [id number] A healthy lifestyle: care instructions [email or web address] Not available 10/03/2022 23:34:31 dash diet: care instructions [email or web address] Not available 09/28/2022 16:49:58 How To Lower Blood Pressure [email or web address] Not available 09/28/2022 16:49:58 08/28/2023 [id number] A healthy lifestyle: care instructions [email or web address] Not available 08/29/2023 17:27:41 07/24/2024 [id number] dash diet: care instructions [email or web address] Not available 07/24/2024 10:19:42 How To Lower Blood Pressure [email or web address] Not available 07/24/2024 10:19:42 A healthy lifestyle: care instructions [email or web address] Not available 07/24/2024 10:15:25 Reason for Referral Bariatric Surgery Referral f or Morbid obesity Referring Physician: Rachel Stone [facility], Encounter Date: 09/04/2022 Weight Management Referral f or Morbid obesity Referring Physician: Rachel Stone [facility], Encounter Date: 07/24/2024 Physical Therapist Referral for Pain of left knee region bilateral knee pain Referring Physician: Rachel Stone [facility], Encounter Date: 07/24/2024 Results Created Date Observation Date Name Description Value Unit Range Abnormal Flag Note LastModifiedBy Organization Detail LastModifiedTime 09/04/19 23 09/06/2022 NUSWA B VAGIN ITIS PLUS (VG+) atopobium vaginae Low - 0 score Not Available [facility] ([facility]) [address] [facility], [place], [address], 09/06/2022 06:15:34 09/04/19 23 09/06/2022 NUA B VAGIN ITIS PLUS (VG+) bvab 2 Low - 0 score Not Available [facility] ([facility]) [address] [facility], [place], [address], 09/06/2022 06:15:34 09/04/19 23 09/06/2022 NUA B VAGIN ITIS PLUS (VG+) megasphaera 1 Low - 0 score Calcu late total score by ruth carnes the 3 indiv idual bacte rial vagin osis (BV) marke r score s toget her. Total score is inter prete d as follo ws: Total score 0-1: Indic ates the absen ce of BV. Total score 2: Indet ermin ate for BV. Addit ional clini angella data shoul d be evalu ated to estab feliberto a diagn osis. Total score 3-6: Indic ates the prese nce of BV. This test was devel oped and its perfo rmanc e ilan cteri stics deter mined by [facility]. It has not been clear ed or appro cris by the Food and Drug Admin istra tion. Not Available [facility] ([facility]) [address] [place], [address], 09/06/2022 06:15:34 09/04/19 23 09/06/2022 NUA B VAGIN ITIS PLUS (VG+) nette albicans, MANDO Negati ve negati ve Not Available [facility] ([facility]) [address] [place], [address], 09/06/2022 06:15:34 09/04/19 23 09/06/2022 NUA B VAGIN ITIS PLUS (VG+) nette glabrata, MANDO Negati ve negati ve Not Available [facility] ([facility]) [address] [place], [address], 09/06/2022 06:15:34 09/04/19 23 09/06/2022 NUA B VAGIN ITIS PLUS (VG+) trich vag by MANDO Negati ve negati ve Not Available [facility] ([facility]) [address] [place], [address], 09/06/2022 06:15:34 09/04/19 23 09/06/2022 NUA B VAGIN ITIS PLUS (VG+) chlamydia trachomatis, MANDO Negati ve negati ve Not Available [facility] ([facility]) [address] [place], [address], 09/06/2022 06:15:34 09/04/19 23 09/06/2022 NUA B VAGIN ITIS PLUS (VG+) neisseria gonorrhoeae, MANDO Negati ve negati ve Not Available [facility] ([facility]) [address] [place], [address], 09/06/2022 06:15:34 09/29/19 23 09/29/2022 T3F+T 4F+TS H triiodothyro nine (T3), free 3.3 pg/mL 2.0-4. 4 Not Available [facility] ([facility]) [address] [place], [address], 09/29/2022 08:16:49 09/29/1909/29/2022 T3F+T 4F+TS H T4,free(dire ct) 1.20 NG/dL 0.82-1 .77 Not Available [facility] ([facility]) [address] [place], [address], 09/29/2022 08:16:49 09/29/1909/29/2022 T3F+T 4F+TS H TSH 0.291 uIU/m L 0.450- 4.500 below low normal Not Available [facility] ([facility]) [address] [place], [address], 09/29/2022 08:16:49 09/29/1909/29/2022 IRON AND TIBC iron bind.cap.(TI BC) 478 ug/dL 250-45 0 above high normal Not Available [facility] ([facility]) [address] [place], [address], 09/29/2022 08:16:50 09/29/1909/29/2022 IRON AND TIBC UIBC 460 ug/dL 131-42 5 above high normal Not Available [facility] ([facility]) [address] [place], [address], 09/29/2022 08:16:50 09/29/1909/29/2022 IRON AND TIBC iron 18 ug/dL 27-159 below low normal Not Available [facility] ([facility]) [address] [place], [address], 09/29/2022 08:16:50 09/29/1909/29/2022 IRON AND TIBC iron saturation 4 % 15-55 alert low Not Available [facility] ([facility]) [address] [place], [address], 09/29/2022 08:16:50 09/29/1910/01/2022 NUSWA B VAGIN ITIS PLUS (VG+) atopobium vaginae Low - 0 score Not Available [facility] ([facility]) [address] [facility], [place], [address], 10/01/2022 08:09:02 09/29/1910/01/2022 NUSWA B VAGIN ITIS PLUS (VG+) bvab 2 Low - 0 score Not Available [facility] ([facility]) [address] [facility], [place], [address], 10/01/2022 08:09:02 09/29/1910/01/2022 NUA B VAGIN ITIS PLUS (VG+) megasphaera 1 Low - 0 score Calcu late total score by ruth carnes the 3 indiv idual bacte rial vagin osis (BV) marke r score s toget her. Total score is inter prete d as follo ws: Total score 0-1: Indic ates the absen ce of BV. Total score 2: Indet ermin ate for BV. Addit ional clini angella data shoul d be evalu ated to estab feliberto a diagn osis. Total score 3-6: Indic ates the prese nce of BV. This test was devel oped and its perfo rmanc e ilan cteri stics deter mined by [facility]. It has not been clear ed or appro cris by the Food and Drug Admin istra tion. Not Available [facility] ([facility]) [address] [facility], [place], [address], 10/01/2022 08:09:02 09/29/1910/01/2022 NUA B VAGIN ITIS PLUS (VG+) nette albicans, MANDO Negati ve negati ve Not Available [facility] ([facility]) [address] [facility], [place], [address], 10/01/2022 08:09:02 09/29/1910/01/2022 NUSWA B VAGIN ITIS PLUS (VG+) nette glabrata, MANDO Negati ve negati ve Not Available [facility] ([facility]) [address] [facility], [place], [address], 10/01/2022 08:09:02 09/29/19 23 10/01/2022 NUA B VAGIN ITIS PLUS (VG+) trich vag by MANDO Negati ve negati ve Not Available [facility] ([facility]) [address] [facility], [place], [address], 10/01/2022 08:09:02 09/29/1910/01/2022 NUA B VAGIN ITIS PLUS (VG+) chlamydia trachomatis, MANDO Negati ve negati ve Not Available [facility] ([facility]) [address] [facility], [place], [address], 10/01/2022 08:09:02 09/29/1910/01/2022 NUA B VAGIN ITIS PLUS (VG+) neisseria gonorrhoeae, MANDO Negati ve negati ve Not Available [facility] ([facility]) [address] [facility], [place], [address], 10/01/2022 08:09:02 09/29/19 23 10/12/2022 CBC WITH DIFFE RENTI AL/PL ATELE T WBC 4.8 K/uL 3.4-10 .8 Not Available [facility] [address] [place], [address], 10/12/2022 14:12:11 09/29/19 23 10/12/2022 CBC WITH DIFFE RENTI AL/PL ATELE T RBC 3.8 M/uL 4.2-5. 4 below low normal Not Available [facility] [address] [place], [address], 10/12/2022 14:12:11 09/29/19 23 10/12/2022 CBC WITH DIFFE RENTI AL/PL ATELE T hemoglobin 8.7 g/dL 11.5-1 5.5 below low normal Not Available [facility] [address] [place], [address], 10/12/2022 14:12:11 09/29/19 23 10/12/2022 CBC WITH DIFFE RENTI AL/PL ATELE T hematocrit 29.7 % 36.0-4 8.0 below low normal Not Available [facility] [address] [place], [address], 10/12/2022 14:12:11 09/29/19 23 10/12/2022 CBC WITH DIFFE RENTI AL/PL ATELE T MCV 78 fL 80-95 below low normal Not Available [facility] [address] [place], [address], 10/12/2022 14:12:11 09/29/19 23 10/12/2022 CBC WITH DIFFE RENTI AL/PL ATELE T MCH 23 pg 27-32 below low normal Not Available [facility] [address] [place], [address], 10/12/2022 14:12:11 09/29/19 23 10/12/2022 CBC WITH DIFFE RENTI AL/PL ATELE T MCHC 29 g/dL 32-36 below low normal Not Available [facility] [address] [place], [address], 10/12/2022 14:12:11 09/29/1910/12/2022 CBC WITH DIFFE RENTI AL/PL ATELE T RDW 16.5 % 11.5-1 4.5 above high normal Not Available [facility] [address] [place], [address], 10/12/2022 14:12:11 09/29/19 23 10/12/2022 CBC WITH DIFFE RENTI AL/PL ATELE T platelets 281 K/uL 155-37 9 MPV 11.5 FL 8.9-1 2.7 N Not Available [facility] [address] [place], [address], 10/12/2022 14:12:11 09/29/1910/12/2022 CBC WITH DIFFE RENTI AL/PL ATELE T neutrophils 51.9 % 40.0-7 4.0 Not Available [facility] [address] [place], [address], 10/12/2022 14:12:11 09/29/1910/12/2022 CBC WITH DIFFE RENTI AL/PL ATELE T lymphs 35.8 % 14.0-4 6.0 Not Available [facility] [address] [place], [address], 10/12/2022 14:12:11 09/29/19 23 10/12/2022 CBC WITH DIFFE RENTI AL/PL ATELE T monocytes 10.9 % 4.0-12 .0 Not Available [facility] [address] [place], [address], 10/12/2022 14:12:11 09/29/1910/12/2022 CBC WITH DIFFE RENTI AL/PL ATELE T eos 0 % 0-5 Not Available [facility] [address] [place], [address], 10/12/2022 14:12:11 09/29/1910/12/2022 CBC WITH DIFFE RENTI AL/PL ATELE T basos 0.6 % 0.0-1. 0 Not Available [facility] [address] [place], [address], 10/12/2022 14:12:11 09/29/1910/12/2022 CBC WITH DIFFE RENTI AL/PL ATELE T neutrophils (absolute) 2.5 K/uL 1.4-7. 0 Not Available [facility] [address] [place], [address], 10/12/2022 14:12:11 09/29/19 23 10/12/2022 CBC WITH DIFFE RENTI AL/PL ATELE T lymphs (absolute) 1.7 K/uL 0.7-3. 1 Not Available [facility] [address] [place], [address], 10/12/2022 14:12:11 09/29/19 23 10/12/2022 CBC WITH DIFFE RENTI AL/PL ATELE T monocytes(ab solute) 0.5 K/uL 0.1-0. 9 Not Available [facility] [address] [place], [address], 10/12/2022 14:12:11 09/29/19 23 10/12/2022 CBC WITH DIFFE RENTI AL/PL ATELE T eos (absolute) 0.0 K/uL 0.0-0. 4 Not Available [facility] [address] [place], [address], 10/12/2022 14:12:11 09/29/19 23 10/12/2022 CBC WITH DIFFE RENTI AL/PL ATELE T baso (absolute) 0.0 K/uL 0.0-0. 3 Not Available [facility] [address] [place], [address], 10/12/2022 14:12:11 09/29/1910/12/2022 CBC WITH DIFFE RENTI AL/PL ATELE T immature granulocytes 0.4 % Not Available [facility] [address] [place], [address], 10/12/2022 14:12:11 09/29/19 23 10/12/2022 CBC WITH DIFFE RENTI AL/PL ATELE T immature grans (abs) 0.0 K/uL Not Available [facility] [address] [place], [address], 10/12/2022 14:12:11 09/29/19 23 10/12/2022 CBC WITH DIFFE RENTI AL/PL ATELE T NRBC 0 % Not Available [facility] [address] [place], [address], 10/12/2022 14:12:11 08/28/19 24 08/29/2023 HBSAG SCREE N HBsAg screen Negati ve negati ve Not Available [facility] ([facility]) [address] [facility], [place], [address], 08/29/2023 11:14:39 08/28/19 24 08/29/2023 HCV ANTIB SLADE hep C virus Ab Non Reacti ve nonrea ctive HCV antib slade alone does not diffe renti ate betwe en previ ously resol cris infec tion and activ e infec tion. Equiv ocal and React lia HCV antib slade resul ts shoul d be follo wed up with an HCV RNA test to suppo rt the diagn osis of activ e HCV infec tion. Not Available [facility] ([facility]) [address] [facility], [place], [address], 08/29/2023 15:11:00 08/28/19 24 08/29/2023 RPR, RFX QN RPR/C ONFIR M TP RPR Reacti ve nonrea ctive abnormal Not Available [facility] ([facility]) [address] [facility], [place], [address], 08/29/2023 15:11:01 08/28/19 24 08/29/2023 RPR QN+TP ABS RPR, quant. 1:2 titer nonrea <1:1 above high normal Not Available [facility] ([facility]) [address] [facility], [place], [address], 08/29/2023 15:11:02 08/28/19 24 08/29/2023 RPR QN+TP ABS treponema pallidum antibodies Reacti ve nonrea ctive abnormal Not Available [facility] ([facility]) [address] [facility], [place], [address], 08/29/2023 15:11:02 08/28/19 24 08/29/2023 HIV AB/P2 4 AG WITH REFLE X HIV Ab/P24 Ag screen Non Reacti ve nonrea ctive HIV Negat lia HIV-1 /HIV- 2 antib odies and HIV-1 p24 antig en were NOT detec wilma. There is no labor atory evide nce of HIV infec tion. Not Available [facility] ([facility]) [address] [facility], [place], [address], 08/29/2023 15:11:02 08/28/19 24 08/30/2023 NUSWA B VAGIN ITIS PLUS (VG+) atopobium vaginae Low - 0 score Not Available [facility] ([facility]) [address] [place], [address], 08/31/2023 06:18:01 08/28/19 24 08/30/2023 NUA B VAGIN ITIS PLUS (VG+) bvab 2 Low - 0 score Not Available [facility] ([facility]) [address] [place], [address], 08/31/2023 06:18:01 08/28/19 24 08/30/2023 NUA B VAGIN ITIS PLUS (VG+) megasphaera 1 Low - 0 score Calcu late total score by ruth g the 3 indiv idual bacte rial vagin osis (BV) marke r score s toget her. Total score is inter prete d as follo ws: Total score 0-1: Indic ates the absen ce of BV. Total score 2: Indet ermin ate for BV. Addit ional clini angella data shoul d be evalu ated to estab feliberto a diagn osis. Total score 3-6: Indic ates the prese nce of BV. This test was devel oped and its perfo rmanc e ilan cteri stics deter mined by [employer] . It has not been clear ed or appro cris by the Food and Drug Admin istra tion. Not Available [facility] ([facility]) [address] [place], [address], 08/31/2023 06:18:01 08/28/19 24 08/30/2023 NUSWA B VAGIN ITIS PLUS (VG+) nette albicans, MANDO Negati ve negati ve Not Available [facility] ([facility]) [address] [place], [address], 08/31/2023 06:18:01 08/28/19 24 08/30/2023 NUA B VAGIN ITIS PLUS (VG+) nette glabrata, MANDO Negati ve negati ve Not Available [facility] ([facility]) [address] [place], [address], 08/31/2023 06:18:01 08/28/19 24 08/30/2023 NUSWA B VAGIN ITIS PLUS (VG+) trich vag by MANDO Negati ve negati ve Not Available [facility] ([facility]) [address] [place], [address], 08/31/2023 06:18:01 08/28/19 24 08/30/2023 NUSWA B VAGIN ITIS PLUS (VG+) chlamydia trachomatis, MANDO Negati ve negati ve Not Available [facility] ([facility]) [address] [place], [address], 08/31/2023 06:18:01 08/28/19 24 08/30/2023 NUA B VAGIN ITIS PLUS (VG+) neisseria gonorrhoeae, MANDO Negati ve negati ve Not Available [facility] ([facility]) [address] [place], [address], 08/31/2023 06:18:01 06/12/20 24 06/12/2024 [facility] ehens lia StatSheet olpiedad 1999 panel - Serum or Plasm a glucose [mass/volume ] in serum or plasma 105 text: 70 - 99 mg/dL high Not Available Not Available 12/07/2024 16:45:59 06/12/20 24 06/12/2024 [facility] [employer] lia metab olic 1999 panel - Serum or Plasm a urea nitrogen [mass/volume ] in serum or plasma 6 text: 7 - 18 mg/dL low Not Available Not Available 12/07/2024 16:45:59 06/12/20 24 06/12/2024 [facility] [employer] lia StatSheet olic 1999 panel - Serum or Plasm a creatinine [mass/volume ] in serum or plasma 0.69 text: 0.55 - 1.02 mg/dL Not Available Not Available 12/07/2024 16:45:59 06/12/20 24 06/12/2024 [facility] [employer] lia StatSheet olic 1999 panel - Serum or Plasm a sodium [moles/volum e] in serum or plasma 138 text: 136 - 145 mmol/L Not Available Not Available 12/07/2024 16:45:59 06/12/20 24 06/12/2024 [facility] [employer] StatSheet olic 1999 panel - Serum or Plasm a potassium [moles/volum e] in serum or plasma 3.9 text: 3.5 - 5.1 mmol/L SLIGH T HEMOL YSIS, RESUL T MAY BE AFFEC WILMA. Not Available Not Available 12/07/2024 16:45:59 06/12/20 24 06/12/2024 [facility] [employer] StatSheet olic 1999 panel - Serum or Plasm a chloride [moles/volum e] in serum or plasma 106 text: 97 - 115 mmol/L Not Available Not Available 12/07/2024 16:45:59 06/12/20 24 06/12/2024 [employer]pr [employer] StatSheet olic 1999 panel - Serum or Plasm a carbon dioxide, total [moles/volum e] in serum or plasma 24.5 text: 21 - 32 mmol/L Not Available Not Available 12/07/2024 16:45:59 06/12/20 24 06/12/2024 Compr [employer]ue [employer] StatSheet olic 2000 panel - Serum or Plasm a calcium [mass/volume ] in serum or plasma 8.7 text: 8.5 - 10.1 mg/dL Not Available Not Available 12/07/2024 16:45:59 06/12/20 24 06/12/2024 Compr ehens lia metab olic 1999 panel - Serum or Plasm a bilirubin.to shannon [mass/volume ] in serum or plasma 1.3 text: 0.2 - 1.2 mg/dL high THIS ASSAY IS NOT RECOM NATASHA D FOR PATIE NTS UNDER GOING TREAT MENT WITH ELTRO MBOPA G DUE TO THE POTEN TIAL FOR FALSE LY ELEVA WILMA RESUL TS. Not Available Not Available 12/07/2024 16:45:59 06/12/20 24 06/12/2024 Compr ehens lia metab olic 1999 panel - Serum or Plasm a protein [mass/volume ] in serum or plasma 7.6 text: 6.4 - 8.2 g/dL Not Available Not Available 12/07/2024 16:45:59 06/12/20 24 06/12/2024 Compr ehens lia metab olic 2000 panel - Serum or Plasm a albumin [mass/volume ] in serum or plasma 3.7 text: 3.4 - 5.0 g/dL Not Available Not Available 12/07/2024 16:45:59 06/12/20 24 06/12/2024 Compr ehens lia metab olic 2000 panel - Serum or Plasm a aspartate aminotransfe rase [enzymatic activity/vol ume] in serum or plasma 168 U/L low: 15U/Lh igh: 37U/L high SLIGH T HEMOL YSIS, RESUL T MAY BE AFFEC WILMA. Not Available Not Available 12/07/2024 16:45:59 06/12/20 24 06/12/2024 Compr ehens lia metab olic 2000 panel - Serum or Plasm a alanine aminotransfe rase [enzymatic activity/vol ume] in serum or plasma 47 U/L low: 14U/Lh igh: 55U/L Not Available Not Available 12/07/2024 16:45:59 06/12/20 24 06/12/2024 Compr ehens lia metab olic 2000 panel - Serum or Plasm a alkaline phosphatase [enzymatic activity/vol ume] in serum or plasma 51 U/L low: 50U/Lh igh: 136U/L Not Available Not Available 12/07/2024 16:45:59 06/12/20 24 06/12/2024 Compr Clue Appens lia StatSheet olic 1999 panel - Serum or Plasm a anion gap in serum or plasma by calculation 7.5 text: 2 - 10 mmol/L Not Available Not Available 12/07/2024 16:45:59 06/12/20 24 06/12/2024 Compr Clue Appens lia metab olic 1999 panel - Serum or Plasm a urea nitrogen/cre atinine [mass ratio] in serum or plasma 8.7 low: 6high: 26 Not Available Not Available 12/07/2024 16:45:59 06/12/20 24 06/12/2024 Compr ehens lia metab olic 1999 panel - Serum or Plasm a albumin/glob ulin [mass ratio] in serum or plasma 0.9 text: 1.0 - 2.0 ratio low Not Available Not Available 12/07/2024 16:45:59 06/12/20 24 06/12/2024 Compr Clue Appens lia metab olic 1999 panel - Serum or Plasm a glomerular filtration rate [volume rate/area] in serum, plasma or blood by creatinine-b ased formula (CKD-epi 2020)/1.73 sq M >90 text: >90 mL/min /1.73 M2 NOTE: eGFR is not calcu lated for patie nts <18 years of age or gende r unkno wn. This is an estim ated GFR calcu latio n using the new CKD EPI creat inine equat ion witho ut race and so does not requi re a corre ction facto r for race. This estim ated GFR shoul d not be used for calcu latin g drug doses . Not Available Not Available 12/07/2024 16:45:59 06/12/20 24 06/12/2024 Compr Clue Appens lia StatSheet olic 1999 panel - Serum or Plasm a interpretati on and review of laboratory results Abnorm al Not Available Not Available 16:45:59 06/12/20 24 06/12/2024 CBC W Auto Diffe renti al panel - Blood leukocytes [#/volume] in blood by automated count 2.58 text: 4.5 - 11.0 x10'3/ uL low Not Available Not Available 12/07/2024 16:45:59 06/12/20 24 06/12/2024 CBC W Auto Diffe renti al panel - Blood erythrocytes [#/volume] in blood by automated count 1.44 text: 4.20 - 5.40 x10'6/ uL low Not Available Not Available 12/07/2024 16:45:59 06/12/20 24 06/12/2024 CBC W Auto Diffe renti al panel - Blood hemoglobin [mass/volume ] in blood 4.8 text: 12.0 - 16.0 g/dL critical low This resul t [place] [id number] on 06/12 22:44 :44, and has been read back. Not Available Not Available 12/07/2024 16:45:59 06/12/20 24 06/12/2024 CBC W Auto Diffe renti al panel - Blood hematocrit [volume fraction] of blood by calculation 14.9 % low: 38%hig h: 48% critical low This resul t has [place] [id number] on 06/12 22:44 :44, and has been read back. Not Available Not Available 12/07/2024 16:45:59 06/12/20 24 06/12/2024 CBC W Auto Diffe renti al panel - Blood MCV [entitic mean volume] in red blood cells 103.5 text: 81.0 - 99.0 fL high Not Available Not Available 12/07/2024 16:45:59 06/12/20 24 06/12/2024 CBC W Auto Diffe renti al panel - Blood MCH [entitic mass] 33.3 pg low: 27pghi gh: 31pg high Not Available Not Available 12/07/2024 16:45:59 06/12/20 24 06/12/2024 CBC W Auto Diffe renti al panel - Blood MCHC [entitic mass/volume] in red blood cells 32.2 text: 32.0 - 36.0 g/dL Not Available Not Available 12/07/2024 16:45:59 06/12/20 24 06/12/2024 CBC W Auto Diffe renti al panel - Blood RDW 26.9 % low: 11.5%h igh: 14.5% high Not Available Not Available 12/07/2024 16:45:59 06/12/20 24 06/12/2024 CBC W Auto Diffe renti al panel - Blood platelets [#/volume] in blood 134 text: 130 - 400 x10'3/ uL Not Available Not Available 12/07/2024 16:45:59 06/12/20 24 06/12/2024 CBC W Auto Diffe renti al panel - Blood differential cell count method - blood MANUAL DIFFER ENTIAL Not Available Not Available 16:45:59 06/12/20 24 06/12/2024 CBC W Auto Diffe renti al panel - Blood segmented neutrophils/ leukocytes in blood by manual count 51 % Not Available Not Available 12/07/2024 16:45:59 06/12/20 24 06/12/2024 CBC W Auto Diffe renti al panel - Blood lymphocytes/ leukocytes in blood by manual count 47 % Not Available Not Available 12/07/2024 16:45:59 06/12/20 24 06/12/2024 CBC W Auto Diffe renti al panel - Blood monocytes/le ukocytes in blood by manual count 1 % Not Available Not Available 12/07/2024 16:45:59 06/12/20 24 06/12/2024 CBC W Auto Diffe renti al panel - Blood basophils/le ukocytes in blood 1 % Not Available Not Available 08/2024 16:45:59 06/12/20 24 06/12/2024 CBC W Auto Diffe renti al panel - Blood nucleated erythrocytes /leukocytes [ratio] in blood 2 text: 0 /100 WBC high Not Available Not Available 12/07/2024 16:45:59 06/12/20 24 06/12/2024 CBC W Auto Diffe renti al panel - Blood neutrophils [#/volume] in blood 1.32 text: 1.80 - 7.70 x10'3/ uL low Not Available Not Available 12/07/2024 16:45:59 06/12/20 24 06/12/2024 CBC W Auto Diffe renti al panel - Blood lymphocytes [#/volume] in blood 1.21 text: 1.00 - 4.80 x10'3/ uL Not Available Not Available 12/07/2024 16:45:59 06/12/20 24 06/12/2024 CBC W Auto Diffe renti al panel - Blood monocytes [#/volume] in blood 0.03 text: 0.24 - 0.86 x10'3/ uL low Not Available Not Available 12/07/2024 16:45:59 06/12/20 24 06/12/2024 CBC W Auto Diffe renti al panel - Blood basophils [#/volume] in blood 0.03 text: 0.01 - 0.08 x10'3/ uL Not Available Not Available 12/07/2024 16:45:59 06/12/20 24 06/12/2024 CBC W Auto Diffe renti al panel - Blood nucleated erythrocytes [#/volume] in blood 0.05 text: 0.00 - 0.01 x10'3/ uL high Not Available Not Available 12/07/2024 16:45:59 06/12/20 24 06/12/2024 CBC W Auto Diffe renti al panel - Blood erythrocytes [morphology] in blood by automated count SLIDE REVIEW ED Not Available Not Available 16:45:59 06/12/20 24 06/12/2024 CBC W Auto Diffe renti al panel - Blood anisocytosis [presence] in blood 3+ Not Available Not Available 08/2024 16:45:59 06/12/20 24 06/12/2024 CBC W Auto Diffe renti al panel - Blood poikilocytos is [presence] in blood by automated count 3+ Not Available Not Available 08/2024 16:45:59 06/12/20 24 06/12/2024 CBC W Auto Diffe renti al panel - Blood hypochromia [presence] in blood 1+ Not Available Not Available 08/2024 16:45:59 06/12/20 24 06/12/2024 CBC W Auto Diffe renti al panel - Blood polychromasi a [presence] in blood by light microscopy 2+ Not Available Not Available 0 12/07/2024 16:45:59 06/12/20 24 06/12/2024 CBC W Auto Diffe renti al panel - Blood platelets [#/volume] in blood by automated count ADEQUA TE Not Available Not Available 16:45:59 06/12/20 24 06/12/2024 CBC W Auto Diffe tobias al panel - Blood interpretati on and review of laboratory results Abnorm al Not Available Not Available 16:45:59 06/12/20 24 06/13/2024 Influ benito virus A+B Ag [Pres ence] in Speci men specimen source identified NEMO ROMERO AL SWAB SPECI MEN TYPE NASOP HARYN GEAL SWAB 06/12 10:11 PM [facility] Not Available Not Available 09/04/2024 11:21:26 06/12/20 24 06/13/2024 Influ benito virus A+B Ag [Pres ence] in Speci men influenza virus A Ag [presence] in specimen NEGATI VE text: negati ve INFLU BENITO A NEGAT LIA NEGAT LIA 06/12 11:23 PM [facility] Not Available Not Available 09/04/2024 11:21:26 06/12/20 24 06/13/2024 Influ benito virus A+B Ag [Pres ence] in Speci men haemophilus influenzae B Ag [presence] in specimen NEGATI VE text: negati ve INFLU BENITO B NEGAT LIA NEGAT LIA 06/12 11:23 PM [facility] Not Available Not Available 09/04/2024 11:21:26 06/12/20 24 06/13/2024 Iron and Iron desirae ng capac ity panel - Serum or Plasm a iron [mass/volume ] in serum or plasma 126 text: 50.0 - 170.0 mcg/dL IRON 126 50.0 - 170.0 MCG/D L 06/13 2:21 AM [facility] Not Available Not Available 09/04/2024 11:21:26 06/12/20 24 06/13/2024 Iron and Iron desirae ng capac ity panel - Serum or Plasm a iron binding capacity [mass/volume ] in serum or plasma 328 text: 250 - 450 mcg/dL IRON DESIRAE NG CAPAC ITY 328 250 - 450 MCG/D L 06/13 2:21 AM [facility] Not Available Not Available 09/04/2024 11:21:26 06/12/20 24 06/13/2024 Iron and Iron desirae ng capac ity panel - Serum or Plasm a iron saturation [mass fraction] in serum or plasma 38 % low: 20%hig h: 55% IRON SATUR ATION 38 20 - 55 % 06/13 2:21 AM [facility] Not Available Not Available 09/04/2024 11:21:26 06/12/20 24 06/13/2024 Cobal duvall (Betty min B12) [Mass /volu me] in Serum or Plasm a cobalamin (vitamin B12) [mass/volume ] in serum or plasma low: 254pg/ mLhigh : 1320pg /mL low VITAM IN B12 S/P/B <60 (L) 254 - 1,320 PG/ML 06/13 2:37 AM [facility] Not Available Not Available 09/04/2024 11:21:26 06/12/20 24 06/13/2024 Cobal duvall (Betty min B12) [Mass /volu me] in Serum or Plasm a interpretati on and review of laboratory results Abnorm al Not Available Not Available 11:21:26 06/12/20 24 06/13/2024 Folat e [Mass /volu me] in Serum or Plasm a folate [mass/volume ] in serum or plasma 9.5 text: 3.1 - 17.5 NG/mL FOLAT E 9.5 3.1 - 17.5 NG/ML 06/13 2:37 AM [facility] Not Available Not Available 09/04/2024 11:21:25 06/12/20 24 06/12/2024 Magne sium [Mass /volu me] in Serum or Plasm a magnesium [mass/volume ] in serum or plasma 1.9 text: 1.8 - 2.4 mg/dL MAGNE SIUM 1.9 1.8 - 2.4 MG/DL 06/12 10:39 PM [facility] Not Available Not Available 09/04/2024 11:21:24 06/12/20 24 06/12/2024 Lipas e [Enzy matic activ ity/v olume ] in Serum or Plasm a lipase [enzymatic activity/vol ume] in serum or plasma 23 text: 13 - 75 units/ L LIPAS E 23 13 - 75 UNITS /L 06/12 10:39 PM [facility] Not Available Not Available 09/04/2024 11:21:24 06/13/20 24 06/13/2024 Hemog lobin [Mass /volu me] in Blood hemoglobin [mass/volume ] in blood 7.3 text: 12.0 - 16.0 g/dL low HGB 7.3 (L) 12.0 - 16.0 G/DL 06/13 9:22 PM [facility] Not Available Not Available 09/04/2024 11:21:25 06/13/20 24 06/13/2024 Hemog lobin [Mass /volu me] in Blood interpretati on and review of laboratory results Abnorm al Not Available Not Available 11:21:25 06/13/20 24 06/13/2024 Hemat ocrit [Volu me Fract ion] of Blood hematocrit [volume fraction] of blood 21.6 % low: 38%hig h: 48% low HCT 21.6 (L) 38.0 - 48.0 % 06/13 9:26 PM [facility] Not Available Not Available 09/04/2024 11:21:25 06/13/20 24 06/13/2024 Hemat ocrit [Volu me Fract ion] of Blood interpretati on and review of laboratory results Abnorm al Not Available Not Available 11:21:25 06/13/20 24 06/13/2024 LDH, LACTA TE DEHYD ROGEN ASE LDH text: 84 - 246 units/ L high Not Available Not Available 12/07/2024 16:45:59 06/13/20 24 06/13/2024 LDH, LACTA TE DEHYD ROGEN ASE interpretati on and review of laboratory results Abnorm al Not Available Not Available 16:45:59 06/13/20 24 06/13/2024 Compr Clue Appens lia StatSheet olic 1999 panel - Serum or Plasm a glucose [mass/volume ] in serum or plasma 95 text: 70 - 99 mg/dL Not Available Not Available 12/07/2024 16:45:59 06/13/20 24 06/13/2024 Compr Clue Appens lia StatSheet olic 1999 panel - Serum or Plasm a urea nitrogen [mass/volume ] in serum or plasma 6 text: 7 - 18 mg/dL low Not Available Not Available 12/07/2024 16:45:59 06/13/20 24 06/13/2024 Compr Clue Appens lia StatSheet olic 1999 panel - Serum or Plasm a creatinine [mass/volume ] in serum or plasma 0.58 text: 0.55 - 1.02 mg/dL Not Available Not Available 12/07/2024 16:45:59 06/13/20 24 06/13/2024 Compr Socius lia StatSheet olic 1999 panel - Serum or Plasm a sodium [moles/volum e] in serum or plasma 136 text: 136 - 145 mmol/L Not Available Not Available 12/07/2024 16:45:59 06/13/20 24 06/13/2024 Compr Socius lia StatSheet olic 1999 panel - Serum or Plasm a potassium [moles/volum e] in serum or plasma 3.7 text: 3.5 - 5.1 mmol/L Not Available Not Available 12/07/2024 16:45:59 06/13/20 24 06/13/2024 Compr Socius lia StatSheet olic 2000 panel - Serum or Plasm a chloride [moles/volum e] in serum or plasma 105 text: 97 - 115 mmol/L Not Available Not Available 12/07/2024 16:45:59 06/13/20 24 06/13/2024 Compr Socius lia StatSheet olic 2000 panel - Serum or Plasm a carbon dioxide, total [moles/volum e] in serum or plasma 27.4 text: 21 - 32 mmol/L Not Available Not Available 12/07/2024 16:45:59 06/13/20 24 06/13/2024 Compr ehens lia metab olic 1999 panel - Serum or Plasm a calcium [mass/volume ] in serum or plasma 8.6 text: 8.5 - 10.1 mg/dL Not Available Not Available 12/07/2024 16:45:59 06/13/20 24 06/13/2024 Compr ehens lia metab olic 1999 panel - Serum or Plasm a bilirubin.to shannon [mass/volume ] in serum or plasma 1.7 text: 0.2 - 1.2 mg/dL high THIS ASSAY IS NOT RECOM NATASHA D FOR PATIE NTS UNDER GOING TREAT MENT WITH ELTRO MBOPA G DUE TO THE POTEN TIAL FOR FALSE LY ELEVA WILMA RESUL TS. Not Available Not Available 12/07/2024 16:45:59 06/13/20 24 06/13/2024 Compr ehens lia metab olic 1999 panel - Serum or Plasm a protein [mass/volume ] in serum or plasma 7.2 text: 6.4 - 8.2 g/dL Not Available Not Available 12/07/2024 16:45:59 06/13/20 24 06/13/2024 Compr ehens lia metab olic 1999 panel - Serum or Plasm a albumin [mass/volume ] in serum or plasma 3.7 text: 3.4 - 5.0 g/dL Not Available Not Available 12/07/2024 16:45:59 06/13/20 24 06/13/2024 Compr Clue Appens lia metab olic 1999 panel - Serum or Plasm a aspartate aminotransfe rase [enzymatic activity/vol ume] in serum or plasma 147 U/L low: 15U/Lh igh: 37U/L high Not Available Not Available 12/07/2024 16:45:59 06/13/20 24 06/13/2024 Compr ehens lia metab olic 2000 panel - Serum or Plasm a alanine aminotransfe rase [enzymatic activity/vol ume] in serum or plasma 46 U/L low: 14U/Lh igh: 55U/L Not Available Not Available 12/07/2024 16:45:59 06/13/20 24 06/13/2024 Compr ehens lia metab olic 2000 panel - Serum or Plasm a alkaline phosphatase [enzymatic activity/vol ume] in serum or plasma 51 U/L low: 50U/Lh igh: 136U/L Not Available Not Available 12/07/2024 16:45:59 06/13/20 24 06/13/2024 Compr Socius lia StatSheet olic 1999 panel - Serum or Plasm a anion gap in serum or plasma by calculation 3.6 text: 2 - 10 mmol/L Not Available Not Available 12/07/2024 16:45:59 06/13/20 24 06/13/2024 Compr Clue Appens lia StatSheet olic 1999 panel - Serum or Plasm a urea nitrogen/cre atinine [mass ratio] in serum or plasma 10.3 low: 6high: 26 Not Available Not Available 12/07/2024 16:45:59 06/13/20 24 06/13/2024 Compr Clue Appens lia metab olic 2000 panel - Serum or Plasm a albumin/glob ulin [mass ratio] in serum or plasma 1.1 text: 1.0 - 2.0 ratio Not Available Not Available 12/07/2024 16:45:59 06/13/20 24 06/13/2024 Compr Clue Appens lia StatSheet olic 1999 panel - Serum or Plasm a glomerular filtration rate [volume rate/area] in serum, plasma or blood by creatinine-b ased formula (CKD-epi 2020)/1.73 sq M >90 text: >90 mL/min /1.73 M2 NOTE: eGFR is not calcu lated for patie nts <18 years of age or gende r unkno wn. This is an estim ated GFR calcu latio n using the new CKD EPI creat inine equat ion witho ut race and so does not requi re a corre ction facto r for race. This estim ated GFR shoul d not be used for calcu latin g drug doses . Not Available Not Available 12/07/2024 16:45:59 06/13/20 24 06/13/2024 Compr Socius lia StatSheet olic 1999 panel - Serum or Plasm a interpretati on and review of laboratory results Abnorm al Not Available Not Available 16:45:59 06/13/20 24 06/13/2024 CBC W Auto Diffe renti al panel - Blood leukocytes [#/volume] in blood by automated count 2.66 text: 4.5 - 11.0 x10'3/ uL low Not Available Not Available 12/07/2024 16:45:59 06/13/20 24 06/13/2024 CBC W Auto Diffe renti al panel - Blood erythrocytes [#/volume] in blood by automated count 2.06 text: 4.20 - 5.40 x10'6/ uL low Not Available Not Available 12/07/2024 16:45:59 06/13/20 24 06/13/2024 CBC W Auto Diffe renti al panel - Blood hemoglobin [mass/volume ] in blood 6.7 text: 12.0 - 16.0 g/dL critical low This resul [place] [id number] on 06/13 12:24 :41, and has been read back. Not Available Not Available 12/07/2024 16:45:59 06/13/20 24 06/13/2024 CBC W Auto Diffe renti al panel - Blood hematocrit [volume fraction] of blood by calculation 19.5 % low: 38%hig h: 48% critical low This resul t has [place] [id number] on 06/13 12:24 :41, and has been read back. Not Available Not Available 12/07/2024 16:45:59 06/13/20 24 06/13/2024 CBC W Auto Diffe renti al panel - Blood MCV [entitic mean volume] in red blood cells 94.7 text: 81.0 - 99.0 fL Not Available Not Available 12/07/2024 16:45:59 06/13/20 24 06/13/2024 CBC W Auto Diffe renti al panel - Blood MCH [entitic mass] 32.5 pg low: 27pghi gh: 31pg high Not Available Not Available 12/07/2024 16:45:59 06/13/20 24 06/13/2024 CBC W Auto Diffe renti al panel - Blood MCHC [entitic mass/volume] in red blood cells 34.4 text: 32.0 - 36.0 g/dL Not Available Not Available 12/07/2024 16:45:59 06/13/20 24 06/13/2024 CBC W Auto Diffe renti al panel - Blood RDW 24.7 % low: 11.5%h igh: 14.5% high Not Available Not Available 12/07/2024 16:45:59 06/13/20 24 06/13/2024 CBC W Auto Diffe renti al panel - Blood platelets [#/volume] in blood 142 text: 130 - 400 x10'3/ uL Not Available Not Available 12/07/2024 16:45:59 06/13/20 24 06/13/2024 CBC W Auto Diffe renti al panel - Blood platelet [entitic mean volume] in blood 10.5 text: 9.3 - 12.2 fL Not Available Not Available 12/07/2024 16:45:59 06/13/20 24 06/13/2024 CBC W Auto Diffe renti al panel - Blood differential cell count method - blood MANUAL DIFFER ENTIAL Not Available Not Available 16:45:59 06/13/20 24 06/13/2024 CBC W Auto Diffe renti al panel - Blood segmented neutrophils/ leukocytes in blood by manual count 62 % Not Available Not Available 12/07/2024 16:45:59 06/13/20 24 06/13/2024 CBC W Auto Diffe renti al panel - Blood lymphocytes/ leukocytes in blood by manual count 33 % Not Available Not Available 12/07/2024 16:45:59 06/13/20 24 06/13/2024 CBC W Auto Diffe renti al panel - Blood monocytes/le ukocytes in blood by manual count 3 % Not Available Not Available 12/07/2024 16:45:59 06/13/20 24 06/13/2024 CBC W Auto Diffe renti al panel - Blood eosinophils/ leukocytes in blood by manual count 1 % Not Available Not Available 12/07/2024 16:45:59 06/13/20 24 06/13/2024 CBC W Auto Diffe renti al panel - Blood band form neutrophils/ leukocytes in blood by manual count 1 % Not Available Not Available 12/07/2024 16:45:59 06/13/20 24 06/13/2024 CBC W Auto Diffe renti al panel - Blood neutrophils [#/volume] in blood 1.68 text: 1.80 - 7.70 x10'3/ uL low Not Available Not Available 12/07/2024 16:45:59 06/13/20 24 06/13/2024 CBC W Auto Diffe renti al panel - Blood lymphocytes [#/volume] in blood 0.88 text: 1.00 - 4.80 x10'3/ uL low Not Available Not Available 12/07/2024 16:45:59 06/13/20 24 06/13/2024 CBC W Auto Diffe renti al panel - Blood monocytes [#/volume] in blood 0.08 text: 0.24 - 0.86 x10'3/ uL low Not Available Not Available 12/07/2024 16:45:59 06/13/20 24 06/13/2024 CBC W Auto Diffe renti al panel - Blood eosinophils [#/volume] in blood 0.03 text: 0.04 - 0.36 x10'3/ uL low Not Available Not Available 12/07/2024 16:45:59 06/13/20 24 06/13/2024 CBC W Auto Diffe renti al panel - Blood erythrocytes [morphology] in blood by automated count SLIDE REVIEW ED Not Available Not Available 16:45:59 06/13/20 24 06/13/2024 CBC W Auto Diffe renti al panel - Blood anisocytosis [presence] in blood 2+ Not Available Not Available 08/2024 16:45:59 06/13/20 24 06/13/2024 CBC W Auto Diffe renti al panel - Blood hypochromia [presence] in blood 1+ Not Available Not Available 08/2024 16:45:59 06/13/20 24 06/13/2024 CBC W Auto Diffe renti al panel - Blood polychromasi a [presence] in blood by light microscopy 1+ Not Available Not Available 0 12/07/2024 16:45:59 06/13/20 24 06/13/2024 CBC W Auto Diffe renti al panel - Blood tear drop 2+ Not Available Not Avai lable 12/07/2024 16:45:59 06/13/20 24 06/13/2024 CBC W Auto Diffe renti al panel - Blood elliptocytes 1+ Not Available Not A vailable 12/07/2024 16:45:59 06/13/20 24 06/13/2024 CBC W Auto Diffe renti al panel - Blood platelets [#/volume] in blood by automated count ADEQUA TE Not Available Not Available 16:45:59 06/13/20 24 06/13/2024 CBC W Auto Diffe renti al panel - Blood interpretati on and review of laboratory results Abnorm al Not Available Not Available 16:45:59 06/13/20 24 06/13/2024 HIV 1+2 Ab [Pres ence] in Serum HIV 1+2 Ab [presence] in serum NON-RE ACTIVE text: non-re active HIV 1/2 AB+ HIV1 P24 AG NON-R EACTI VE NON-R EACTI VE 06/13 1:21 PM [facility] Not Available Not Available 09/04/2024 11:21:26 06/13/20 24 06/13/2024 Thyro tropi n [Unit s/vol ume] in Serum or Plasm a thyrotropin [units/volum e] in serum or plasma 0.045 text: 0.358 - 3.74 uIU/mL low TSH 0.045 (L) 0.358 - 3.74 uIU/M L 06/13 12:29 PM [facility] Not Available Not Available 09/04/2024 11:21:26 06/13/20 24 06/13/2024 Thyro tropi n [Unit s/vol ume] in Serum or Plasm a interpretati on and review of laboratory results Abnorm al Not Available Not Available 11:21:26 06/13/20 24 06/18/2024 Intri nsic facto r block ing Ab [Pres ence] in Serum intrinsic factor blocking Ab [presence] in serum POSITI VE text: negati ve abnormal INTRI NSIC FACTO R BLOCK AB POSIT LIA (A) Negat lia 06/18 3:00 PM [facility] ANTIL LY Not Available Not Available 09/04/2024 11:21:25 06/13/20 24 06/18/2024 Intri nsic facto r block ing Ab [Pres ence] in Serum interpretati on and review of laboratory results Abnorm al Not Available Not Available 11:21:25 06/13/20 24 06/13/2024 Acute hepat itis 2000 panel - Serum hepatitis B virus surface Ag [presence] in serum NON-RE ACTIVE text: non-re active HEPAT ITIS B SURFA CE AG NON-R EACTI VE NON-R EACTI VE 06/13 12:56 PM [facility] Not Available Not Available 09/04/2024 11:21:25 06/13/20 24 06/13/2024 Acute hepat itis 1999 panel - Serum hepatitis B virus core IgM Ab [presence] in serum NON-RE ACTIVE text: non-re active HEP B CORE IGM NON-R EACTI VE NON-R EACTI VE 06/13 1:08 PM [facility] Not Available Not Available 09/04/2024 11:21:25 06/13/20 24 06/13/2024 Acute hepat itis 2000 panel - Serum hepatitis A virus IgM Ab [presence] in serum NON-RE ACTIVE text: non-re active HAV IGM NON-R EACTI VE NON-R EACTI VE 06/13 1:10 PM [facility] Not Available Not Available 09/04/2024 11:21:25 06/13/20 24 06/13/2024 Acute hepat itis 2000 panel - Serum hepatitis C virus Ab [presence] in serum NON-RE ACTIVE text: non-re active HEPAT ITIS C AB NON-R EACTI VE NON-R EACTI VE 06/13 1:07 PM [facility] Not Available Not Available 09/04/2024 11:21:25 06/13/20 24 06/13/2024 Thyro xine (T4) free [Mass /volu me] in Serum or Plasm a thyroxine (T4) free [mass/volume ] in serum or plasma 1.08 text: 0.76 - 1.46 NG/dL FREE T4 1.08 0.76 - 1.46 NG/DL 06/13 12:53 PM [facility] Not Available Not Available 09/04/2024 11:21:25 06/13/20 24 06/14/2024 Blood type and Indir ect antib slade scree n panel - Blood blood product units requested [#] 3 UNITS ORDER ED 3 06/14 2:39 PM [facility] Not Available Not Available 09/04/2024 11:21:26 06/13/20 24 06/14/2024 Blood type and Indir ect antib slade scree n panel - Blood ABO and Rh group panel - blood AB POSITI VE ABO/R H AB POSIT LIA 06/13 1:48 AM [facility] Not Available Not Available 09/04/2024 11:21:26 06/13/20 24 06/14/2024 Blood type and Indir ect antib slade scree n panel - Blood blood group antibody screen [presence] in serum or plasma NEGATI VE ANTIB SLADE SCREE N NEGAT LIA 06/13 1:48 AM [facility] Not Available Not Available 09/04/2024 11:21:26 06/13/20 24 06/14/2024 Blood type and Indir ect antib slade scree n panel - Blood specimen expiration date of blood 2023,2 359 SAMPL E EXPIR ATION 06/16 ,2359 06/13 1:48 AM [facility] Not Available Not Available 09/04/2024 11:21:26 06/13/20 24 06/14/2024 Blood type and Indir ect antib slade scree n panel - Blood blood product unit id [#] [id number] BLOOD UNIT NUMBE R [id number] 06/13 1:49 AM [facility] Not Available Not Available 09/04/2024 11:21:26 06/13/20 24 06/14/2024 Blood type and Indir ect antib slade scree n panel - Blood blood product type PC LEUKOP OOR PRODU CT: PC LEUKO POOR 06/13 1:49 AM [facility] Not Available Not Available 09/04/2024 11:21:26 06/13/20 24 06/14/2024 Blood type and Indir ect antib slade scree n panel - Blood unit division 0 UNIT DIVIS ION 00 06/13 1:49 AM [facility] Not Available Not Available 09/04/2024 11:21:26 06/13/20 24 06/14/2024 Blood type and Indir ect antib slade scree n panel - Blood blood bank comment TRANSF USED,F INAL BLOOD UNIT STATU S TRANS FUSED ,ENRIKE L 06/14 6:43 AM [facility] Not Available Not Available 09/04/2024 11:21:26 06/13/20 24 06/14/2024 Blood type and Indir ect antib slade scree n panel - Blood issue date/time 20230709 ISSUE DATE/ TIME 54 06/14 6:43 AM [facility] Not Available Not Available 09/04/2024 11:21:26 06/13/20 24 06/14/2024 Blood type and Indir ect antib slade scree n panel - Blood product code [id number] [address] CODE E0336 V00 06/14 6:43 AM [facility] Not Available Not Available 09/04/2024 11:21:26 06/13/20 24 06/14/2024 Blood type and Indir ect antib slade scree n panel - Blood ABO/Rh unit AB POS ABO/R H Unit AB POS 06/14 6:43 AM [facility] Not Available Not Available 09/04/2024 11:21:26 06/13/20 24 06/14/2024 Blood type and Indir ect antib slade scree n panel - Blood ABO/Rh unit isbt code 8400 ABO/R H UNIT ISBT CODE 8400 06/14 6:43 AM [facility] Not Available Not Available 09/04/2024 11:21:26 06/13/20 24 06/14/2024 Blood type and Indir ect antib slade scree n panel - Blood blood unit expiration date 20230709 [id number] BLOOD UNIT EXPIR ATION DATE 55057 59 06/14 6:43 AM [facility] Not Available Not Available 09/04/2024 11:21:26 06/13/20 24 06/14/2024 Blood type and Indir ect antib slade scree n panel - Blood transfusion status qualitative OK TO TRANSF USE TRANS FUSIO N STATU S OK TO TRANS FUSE 06/13 1:49 AM [facility] Not Available Not Available 09/04/2024 11:21:26 06/13/20 24 06/14/2024 Blood type and Indir ect antib slade scree n panel - Blood major crossmatch [interpretat ion] COMPAT IBLE-E XM CROSS MATCH PETROS TIBLE -EXM 06/13 1:49 AM [facility] Not Available Not Available 09/04/2024 11:21:26 06/13/20 24 06/14/2024 Blood type and Indir ect antib slade scree n panel - Blood blood product unit id [#] [id number] BLOOD UNIT NUMBE R [id number] 06/13 1:49 AM [facility] Not Available Not Available 09/04/2024 11:21:26 06/13/20 24 06/14/2024 Blood type and Indir ect antib slade scree n panel - Blood blood product type PC LEUKOP OOR PRODU CT: PC LEUKO POOR 06/13 1:49 AM [facility] Not Available Not Available 09/04/2024 11:21:26 06/13/20 24 06/14/2024 Blood type and Indir ect antib slade scree n panel - Blood unit division 0 UNIT DIVIS ION 00 06/13 1:49 AM [facility] Not Available Not Available 09/04/2024 11:21:26 06/13/20 24 06/14/2024 Blood type and Indir ect antib slade scree n panel - Blood blood bank comment UNIT RELEAS ED BLOOD UNIT STATU S UNIT RELEA SED 06/14 2:39 PM [facility] Not Available Not Available 09/04/2024 11:21:26 06/13/20 24 06/14/2024 Blood type and Indir ect antib slade scree n panel - Blood transfusion status qualitative OK TO TRANSF USE TRANS FUSIO N STATU S OK TO TRANS FUSE 06/13 1:49 AM [facility] Not Available Not Available 09/04/2024 11:21:26 06/13/20 24 06/14/2024 Blood type and Indir ect antib slade scree n panel - Blood major crossmatch [interpretat ion] COMPAT IBLE-E XM CROSS MATCH PETROS TIBLE -EXM 06/13 1:49 AM [facility] Not Available Not Available 09/04/2024 11:21:26 06/13/20 24 06/14/2024 Blood type and Indir ect antib slade scree n panel - Blood blood product unit id [#] [id number] BLOOD UNIT NUMBE R [id number] 06/13 5:14 AM [facility] Not Available Not Available 09/04/2024 11:21:26 06/13/20 24 06/14/2024 Blood type and Indir ect antib slade scree n panel - Blood blood product type PC LEUKOP OOR PRODU CT: PC LEUKO POOR 06/13 5:14 AM [facility] Not Available Not Available 09/04/2024 11:21:26 06/13/20 24 06/14/2024 Blood type and Indir ect antib slade scree n panel - Blood unit division 0 UNIT DIVIS ION 00 06/13 5:14 AM [facility] Not Available Not Available 09/04/2024 11:21:26 06/13/20 24 06/14/2024 Blood type and Indir ect antib slade scree n panel - Blood blood bank comment TRANSF USED,F INAL BLOOD UNIT STATU S TRANS FUSED ,ENRIKE L 06/14 6:43 AM [facility] Not Available Not Available 09/04/2024 11:21:26 06/13/20 24 06/14/2024 Blood type and Indir ect antib slade scree n panel - Blood issue date/time 20230709 ISSUE DATE/ TIME 06/14 6:43 AM [facility] Not Available Not Available 09/04/2024 11:21:26 06/13/20 24 06/14/2024 Blood type and Indir ect antib slade scree n panel - Blood product code [id number] [address] CODE E0336 V00 06/14 6:43 AM [facility] Not Available Not Available 09/04/2024 11:21:26 06/13/20 24 06/14/2024 Blood type and Indir ect antib slade scree n panel - Blood ABO/Rh unit AB POS ABO/R H Unit AB POS 06/14 6:43 AM [facility] Not Available Not Available 09/04/2024 11:21:26 06/13/20 24 06/14/2024 Blood type and Indir ect antib slade scree n panel - Blood ABO/Rh unit isbt code 8400 ABO/R H UNIT ISBT CODE 8400 06/14 6:43 AM [facility] Not Available Not Available 09/04/2024 11:21:26 06/13/20 24 06/14/2024 Blood type and Indir ect antib slade scree n panel - Blood blood unit expiration date 20230709 [id number] BLOOD UNIT EXPIR ATION DATE 84756 59 06/14 6:43 AM [facility] Not Available Not Available 09/04/2024 11:21:26 06/13/20 24 06/14/2024 Blood type and Indir ect antib slade scree n panel - Blood transfusion status qualitative OK TO TRANSF USE TRANS FUSIO N STATU S OK TO TRANS FUSE 06/13 5:14 AM [facility] Not Available Not Available 09/04/2024 11:21:26 06/13/20 24 06/14/2024 Blood type and Indir ect antib slade scree n panel - Blood major crossmatch [interpretat ion] COMPAT IBLE-E XM CROSS MATCH PETROS TIBLE -EXM 06/13 5:14 AM [facility] Not Available Not Available 09/04/2024 11:21:26 06/13/20 24 06/14/2024 Blood type and Indir ect antib slade scree n panel - Blood blood product unit id [#] [id number] BLOOD UNIT NUMBE R [id number] 06/13 12:48 PM [facility] Not Available Not Available 09/04/2024 11:21:26 06/13/20 24 06/14/2024 Blood type and Indir ect antib slade scree n panel - Blood blood product type PC LEUKOP OOR PRODU CT: PC LEUKO POOR 06/13 12:48 PM [facility] Not Available Not Available 09/04/2024 11:21:26 06/13/20 24 06/14/2024 Blood type and Indir ect antib slade scree n panel - Blood unit division 0 UNIT DIVIS ION 00 06/13 12:48 PM [facility] Not Available Not Available 09/04/2024 11:21:26 06/13/20 24 06/14/2024 Blood type and Indir ect antib slade scree n panel - Blood blood bank comment TRANSF USED,F INAL BLOOD UNIT STATU S TRANS FUSED ,ENRIKE L 06/14 6:43 AM [facility] Not Available Not Available 09/04/2024 11:21:26 06/13/20 24 06/14/2024 Blood type and Indir ect antib slade scree n panel - Blood issue date/time 20230709 [id number] ISSUE DATE/ TIME 55 06/14 6:43 AM [facility] Not Available Not Available 09/04/2024 11:21:26 06/13/20 24 06/14/2024 Blood type and Indir ect antib slade scree n panel - Blood product code L1063I [address] CODE E0336 V00 06/14 6:43 AM [facility] Not Available Not Available 09/04/2024 11:21:26 06/13/20 24 06/14/2024 Blood type and Indir ect antib slade scree n panel - Blood ABO/Rh unit AB POS ABO/R H Unit AB POS 06/14 6:43 AM [facility] Not Available Not Available 09/04/2024 11:21:26 06/13/20 24 06/14/2024 Blood type and Indir ect antib slade scree n panel - Blood ABO/Rh unit isbt code 8400 ABO/R H UNIT ISBT CODE 8400 06/14 6:43 AM [facility] Not Available Not Available 09/04/2024 11:21:26 06/13/20 24 06/14/2024 Blood type and Indir ect antib slade scree n panel - Blood blood unit expiration date 20230709 [id number] BLOOD UNIT EXPIR ATION DATE 99964 59 06/14 6:43 AM [facility] Not Available Not Available 09/04/2024 11:21:26 06/13/20 24 06/14/2024 Blood type and Indir ect antib slade scree n panel - Blood transfusion status qualitative OK TO TRANSF USE TRANS FUSIO N STATU S OK TO TRANS FUSE 06/13 12:48 PM [facility] Not Available Not Available 09/04/2024 11:21:26 06/13/20 24 06/14/2024 Blood type and Indir ect antib slade scree n panel - Blood major crossmatch [interpretat ion] COMPAT IBLE-E XM CROSS MATCH PETROS TIBLE -EXM 06/13 12:48 PM [facility] Not Available Not Available 09/04/2024 11:21:26 06/14/20 24 06/14/2024 Retic ulocy jeanna [#/vo lume] in Blood by Autom ated count reticulocyte s/100 erythrocytes in blood 1 % low: 0.8%hi gh: 2.1% RETIC ULOCY TE COUNT 1.0 0.8 - 2.1 % 06/14 10:27 AM [facility] Not Available Not Available 09/04/2024 11:21:25 06/14/20 24 06/14/2024 Retic ulocy jeanna [#/vo lume] in Blood by Autom ated count reticulocyte s [#/volume] in blood by automated count 0.02 text: 0.02 - 0.10 x10'6/ uL ABSOL MARCELLE RETIC ULOCY TE 0.02 0.02 - 0.10 x10'6 /uL 06/14 10:27 AM [facility] Not Available Not Available 09/04/2024 11:21:25 06/14/20 24 06/14/2024 Retic ulocy jeanna [#/vo lume] in Blood by Autom ated count immature reticulocyte s/100 erythrocytes in cord blood by automated count 13.7 % low: 3%high : 15.9% IMMAT URE RETIC FRACT ION 13.7 3.0 - 15.9 % 06/14 10:27 AM [facility] Not Available Not Available 09/04/2024 11:21:25 06/14/20 24 06/14/2024 Retic ulocy jeanna [#/vo lume] in Blood by Autom ated count retic HGB 34.5 pg low: 28pghi gh: 35pg RETIC HGB 34.5 28.0 - 35.0 PG 06/14 10:27 AM [facility] Not Available Not Available 09/04/2024 11:21:25 06/14/20 24 06/14/2024 Hapto globi n [Mass /volu me] in Serum or Plasm a haptoglobin [mass/volume ] in serum or plasma text: 30.0 - 200.0 mg/dL low HAPTO GLOBI N <7.8 (L) 30.0 - 200.0 MG/DL 06/14 10:05 AM [facility] Not Available Not Available 09/04/2024 11:21:25 06/14/20 24 06/14/2024 Hapto globi n [Mass /volu me] in Serum or Plasm a interpretati on and review of laboratory results Abnorm al Not Available Not Available 11:21:25 06/14/20 24 06/14/2024 Compr ehens lia metab olic 1999 panel - Serum or Plasm a glucose [mass/volume ] in serum or plasma 100 text: 70 - 99 mg/dL high GLUCO SE 100 (H) 70 - 99 MG/DL 06/14 10:08 AM [facility] Not Available Not Available 09/04/2024 11:21:25 06/14/20 24 06/14/2024 Compr ehens lia metab olic 2000 panel - Serum or Plasm a urea nitrogen [mass/volume ] in serum or plasma 10 text: 7 - 18 mg/dL BUN 10 7 - 18 MG/DL 06/14 10:08 AM [facility] Not Available Not Available 09/04/2024 11:21:25 06/14/20 24 06/14/2024 Compr ehens lia metab olic 1999 panel - Serum or Plasm a creatinine [mass/volume ] in serum or plasma 0.68 text: 0.55 - 1.02 mg/dL CREAT ININE S/P/B 0.68 0.55 - 1.02 MG/DL 06/14 10:08 AM [facility] Not Available Not Available 09/04/2024 11:21:25 06/14/20 24 06/14/2024 Compr ehens lia metab olic 1999 panel - Serum or Plasm a sodium [moles/volum e] in serum or plasma 138 text: 136 - 145 mmol/L SODIU M S/P/B 138 136 - 145 MMOL/ L 06/14 10:08 AM [facility] Not Available Not Available 09/04/2024 11:21:25 06/14/20 24 06/14/2024 Compr ehens lia metab olic 1999 panel - Serum or Plasm a potassium [moles/volum e] in serum or plasma 3.7 text: 3.5 - 5.1 mmol/L POTAS SIUM S/P/B 3.7 3.5 - 5.1 MMOL/ L 06/14 10:08 AM [facility] Not Available Not Available 09/04/2024 11:21:25 06/14/20 24 06/14/2024 Compr ehens lia metab olic 2000 panel - Serum or Plasm a chloride [moles/volum e] in serum or plasma 107 text: 97 - 115 mmol/L CHLOR NATALIE S/P/B 107 97 - 115 MMOL/ L 06/14 10:08 AM [facility] Not Available Not Available 09/04/2024 11:21:25 06/14/20 24 06/14/2024 Compr ehens lia metab olic 2000 panel - Serum or Plasm a carbon dioxide, total [moles/volum e] in serum or plasma 27 text: 21 - 32 mmol/L CO2 27.0 21 - 32 MMOL/ L 06/14 10:08 AM [facility] Not Available Not Available 09/04/2024 11:21:25 06/14/20 24 06/14/2024 Compr ehens lia metab olic 2000 panel - Serum or Plasm a calcium [mass/volume ] in serum or plasma 9.2 text: 8.5 - 10.1 mg/dL CALCI UM S/P/B 9.2 8.5 - 10.1 MG/DL 06/14 10:08 AM [facility] Not Available Not Available 09/04/2024 11:21:25 06/14/20 24 06/14/2024 Compr ehens lia metab olic 2000 panel - Serum or Plasm a bilirubin.to shannon [mass/volume ] in serum or plasma 1.9 text: 0.2 - 1.2 mg/dL high BILIR UBIN TOTAL S/P/B 1.9 (H) 0.2 - 1.2 MG/DL 06/14 10:08 AM [facility] Not Available Not Available 09/04/2024 11:21:25 06/14/20 24 06/14/2024 Compr ehens lia metab olic 2000 panel - Serum or Plasm a protein [mass/volume ] in serum or plasma 7.5 text: 6.4 - 8.2 g/dL TOTAL PROTE IN S/P/B 7.5 6.4 - 8.2 G/DL 06/14 10:08 AM [facility] Not Available Not Available 09/04/2024 11:21:25 06/14/20 24 06/14/2024 Compr ehens lia metab olic 2000 panel - Serum or Plasm a albumin [mass/volume ] in serum or plasma 3.9 text: 3.4 - 5.0 g/dL ALBUM IN S/P/B 3.9 3.4 - 5.0 G/DL 06/14 10:08 AM [facility] Not Available Not Available 09/04/2024 11:21:25 06/14/20 24 06/14/2024 Compr ehens lia metab olic 1999 panel - Serum or Plasm a aspartate aminotransfe rase [enzymatic activity/vol ume] in serum or plasma 147 U/L low: 15U/Lh igh: 37U/L high AST 147 (H) 15 - 37 U/L 06/14 10:08 AM [facility] Not Available Not Available 09/04/2024 11:21:25 06/14/20 24 06/14/2024 Compr ehens lia metab olic 2000 panel - Serum or Plasm a alanine aminotransfe rase [enzymatic activity/vol ume] in serum or plasma 49 U/L low: 14U/Lh igh: 55U/L ALT 49 14 - 55 U/L 06/14 10:08 AM [facility] Not Available Not Available 09/04/2024 11:21:25 06/14/20 24 06/14/2024 Compr ehens lia metab olic 2000 panel - Serum or Plasm a alkaline phosphatase [enzymatic activity/vol ume] in serum or plasma 54 U/L low: 50U/Lh igh: 136U/L ALKAL INE PHOSP HATAS E S/P/B 54 50 - 136 U/L 06/14 10:08 AM [facility] Not Available Not Available 09/04/2024 11:21:25 06/14/20 24 06/14/2024 Compr ehens lia metab olic 2000 panel - Serum or Plasm a anion gap in serum or plasma 4 text: 2 - 10 mmol/L ANION GAP 4.0 2 - 10 MMOL/ L 06/14 10:08 AM [facility] Not Available Not Available 09/04/2024 11:21:25 06/14/20 24 06/14/2024 Compr ehens lia metab olic 2000 panel - Serum or Plasm a urea nitrogen/cre atinine [mass ratio] in serum or plasma 14.7 low: 6high: 26 BUN CREAT ININE RATIO 14.7 6 - 26 06/14 10:08 AM [facility] Not Available Not Available 09/04/2024 11:21:25 06/14/20 24 06/14/2024 Compr ehens lia metab olic 2000 panel - Serum or Plasm a albumin/glob ulin [mass ratio] in serum or plasma 1.1 text: 1.0 - 2.0 ratio A/G RATIO 1.1 1.0 - 2.0 RATIO 06/14 10:08 AM [facility] Not Available Not Available 09/04/2024 11:21:25 06/14/20 24 06/14/2024 Compr ehens lia metab olic 2000 panel - Serum or Plasm a glomerular filtration rate/1.73 sq M.predicted [volume rate/area] in serum, plasma or blood by creatinine-b ased formula (CKD-epi 2020) text: >90 mL/min /1.73 M2 GFR ESTIM ATE >90 >90 ML/MO N/1.7 3 M2 06/14 10:08 AM [facility] Not Available Not Available 09/04/2024 11:21:25 06/14/20 24 06/14/2024 Compr ehens lia metab olic 2000 panel - Serum or Plasm a interpretati on and review of laboratory results Abnorm al Not Available Not Available 11:21:25 06/14/20 24 06/14/2024 LDH, LACTA TE DEHYD ROGEN ASE LDH text: 84 - 246 units/ L high LDH >4,00 0 (H) 84 - 246 UNITS /L 06/14 12:05 PM [facility] Not Available Not Available 09/04/2024 11:21:25 06/14/20 24 06/14/2024 LDH, LACTA TE DEHYD ROGEN ASE interpretati on and review of laboratory results Abnorm al Not Available Not Available 11:21:25 06/14/20 24 06/14/2024 CBC W Auto Diffe renti al panel - Blood leukocytes [#/volume] in blood by automated count 2.52 text: 4.5 - 11.0 x10'3/ uL low WBC 2.52 (L) 4.5 - 11.0 x10'3 /uL 06/14 10:27 AM [facility] Not Available Not Available 09/04/2024 11:21:25 06/14/20 24 06/14/2024 CBC W Auto Diffe renti al panel - Blood erythrocytes [#/volume] in blood by automated count 2.56 text: 4.20 - 5.40 x10'6/ uL low RBC 2.56 (L) 4.20 - 5.40 x10'6 /uL 06/14 10:27 AM [facility] Not Available Not Available 09/04/2024 11:21:25 06/14/20 24 06/14/2024 CBC W Auto Diffe renti al panel - Blood hemoglobin [mass/volume ] in blood 8.1 text: 12.0 - 16.0 g/dL low HGB 8.1 (L) 12.0 - 16.0 G/DL 06/14 10:27 AM [facility] Not Available Not Available 09/04/2024 11:21:25 06/14/20 24 06/14/2024 CBC W Auto Diffe renti al panel - Blood hematocrit [volume fraction] of blood 24.1 % low: 38%hig h: 48% low HCT 24.1 (L) 38.0 - 48.0 % 06/14 10:27 AM [facility] Not Available Not Available 09/04/2024 11:21:25 06/14/20 24 06/14/2024 CBC W Auto Diffe renti al panel - Blood MCV [entitic volume] 94.1 text: 81.0 - 99.0 fL MCV 94.1 81.0 - 99.0 FL 06/14 10:27 AM [facility] Not Available Not Available 09/04/2024 11:21:25 06/14/20 24 06/14/2024 CBC W Auto Diffe renti al panel - Blood MCH [entitic mass] 31.6 pg low: 27pghi gh: 31pg high MCH 31.6 (H) 27.0 - 31.0 PG 06/14 10:27 AM [facility] Not Available Not Available 09/04/2024 11:21:25 06/14/20 24 06/14/2024 CBC W Auto Diffe renti al panel - Blood MCHC [mass/volume ] 33.6 text: 32.0 - 36.0 g/dL MCHC 33.6 32.0 - 36.0 G/DL 06/14 10:27 AM [facility] Not Available Not Available 09/04/2024 11:21:25 06/14/20 24 06/14/2024 CBC W Auto Diffe renti al panel - Blood erythrocyte distribution width [entitic volume] by automated count 24.1 % low: 11.5%h igh: 14.5% high RDW 24.1 (H) 11.5 - 14.5 % 06/14 10:27 AM [facility] Not Available Not Available 09/04/2024 11:21:25 06/14/20 24 06/14/2024 CBC W Auto Diffe renti al panel - Blood platelets [#/volume] in blood 125 text: 130 - 400 x10'3/ uL low PLT 125 (L) 130 - 400 x10'3 /uL 06/14 10:27 AM [facility] Not Available Not Available 09/04/2024 11:21:25 06/14/20 24 06/14/2024 CBC W Auto Diffe renti al panel - Blood platelet mean volume [entitic volume] in blood 9.7 text: 9.3 - 12.2 fL MPV 9.7 9.3 - 12.2 FL 06/14 10:27 AM [facility] Not Available Not Available 09/04/2024 11:21:25 06/14/20 24 06/14/2024 CBC W Auto Diffe renti al panel - Blood differential cell count method - blood MANUAL DIFFER ENTIAL DIFFE RENTI AL TYPE BRICE L DIFFE RENTI AL 06/14 10:27 AM [facility] Not Available Not Available 09/04/2024 11:21:25 06/14/20 24 06/14/2024 CBC W Auto Diffe renti al panel - Blood segmented neutrophils/ 100 leukocytes in blood by manual count 62 % SEG NEUTR OPHIL S 62 % 06/14 10:27 AM [facility] Not Available Not Available 09/04/2024 11:21:25 06/14/20 24 06/14/2024 CBC W Auto Diffe renti al panel - Blood lymphocytes/ 100 leukocytes in blood by manual count 35 % LYMPH OCYTE S 35 % 06/14 10:27 AM [facility] Not Available Not Available 09/04/2024 11:21:25 06/14/20 24 06/14/2024 CBC W Auto Diffe renti al panel - Blood monocytes/10 0 leukocytes in blood by manual count 2 % MONOC YTES 2 % 06/14 10:27 AM [facility] Not Available Not Available 09/04/2024 11:21:25 06/14/20 24 06/14/2024 CBC W Auto Diffe renti al panel - Blood basophils/10 0 leukocytes in blood 1 % BASOP HILS 1 % 06/14 10:27 AM [facility] Not Available Not Available 09/04/2024 11:21:25 06/14/20 24 06/14/2024 CBC W Auto Diffe renti al panel - Blood nucleated erythrocytes /100 leukocytes [ratio] in blood 2 text: 0 /100 WBC high NRBC 2 (H) 0 /100 WBC 06/14 10:27 AM [facility] Not Available Not Available 09/04/2024 11:21:25 06/14/20 24 06/14/2024 CBC W Auto Diffe renti al panel - Blood neutrophils [#/volume] in blood 1.56 text: 1.80 - 7.70 x10'3/ uL low ABS. NEUTR OPHIL S 1.56 (L) 1.80 - 7.70 x10'3 /uL 06/14 10:27 AM [facility] Not Available Not Available 09/04/2024 11:21:25 06/14/20 24 06/14/2024 CBC W Auto Diffe renti al panel - Blood lymphocytes [#/volume] in blood 0.88 text: 1.00 - 4.80 x10'3/ uL low ABS. LYMPH OCYTE S 0.88 (L) 1.00 - 4.80 x10'3 /uL 06/14 10:27 AM [facility] Not Available Not Available 09/04/2024 11:21:25 06/14/20 24 06/14/2024 CBC W Auto Diffe renti al panel - Blood monocytes [#/volume] in blood 0.05 text: 0.24 - 0.86 x10'3/ uL low ABS. MONOC YTES 0.05 (L) 0.24 - 0.86 x10'3 /uL 06/14 10:27 AM [facility] Not Available Not Available 09/04/2024 11:21:25 06/14/20 24 06/14/2024 CBC W Auto Diffe renti al panel - Blood basophils [#/volume] in blood 0.03 text: 0.01 - 0.08 x10'3/ uL ABS. BASOP HILS 0.03 0.01 - 0.08 x10'3 /uL 06/14 10:27 AM [facility] Not Available Not Available 09/04/2024 11:21:25 06/14/20 24 06/14/2024 CBC W Auto Diffe renti al panel - Blood nucleated erythrocytes [#/volume] in blood 0.05 text: 0.00 - 0.01 x10'3/ uL high ABS. NUCLE ATED RBC'S 0.05 (H) 0.00 - 0.01 x10'3 /uL 06/14 10:27 AM [facility] Not Available Not Available 09/04/2024 11:21:25 06/14/20 24 06/14/2024 CBC W Auto Diffe renti al panel - Blood erythrocytes [morphology] in blood by automated count SLIDE REVIEW ED RBC MORPH OLOGY SLIDE REVIE WED 06/14 10:27 AM [facility] Not Available Not Available 09/04/2024 11:21:25 06/14/20 24 06/14/2024 CBC W Auto Diffe renti al panel - Blood anisocytosis [presence] in blood 2+ ANISO 2+ 06/14 10:27 AM [facility] Not Available Not Available 09/04/2024 11:21:25 06/14/20 24 06/14/2024 CBC W Auto Diffe renti al panel - Blood poikilocytos is [presence] in blood by automated count 2+ POIKL O 2+ 06/14 10:27 AM [facility] Not Available Not Available 09/04/2024 11:21:25 06/14/20 24 06/14/2024 CBC W Auto Diffe renti al panel - Blood schisto 1+ SCHIS TO 1+ 06/14 10:27 AM [facility] Not Available Not Available 09/04/2024 11:21:25 06/14/20 24 06/14/2024 CBC W Auto Diffe renti al panel - Blood platelets [#/volume] in blood by automated count ADEQUA TE PLT EST. ADEQU ATE 06/14 10:27 AM [facility] Not Available Not Available 09/04/2024 11:21:25 06/14/20 24 06/14/2024 CBC W Auto Diffe renti al panel - Blood interpretati on and review of laboratory results Abnorm al Not Available Not Available 11:21:25 06/14/20 24 06/14/2024 Hemog lobin .angy roint estin al [Pres ence] in Stool hemoglobin.g astrointesti nal [presence] in stool NEGATI VE OCCUL T BLOOD FECAL NEGAT LIA 06/14 9:24 AM [facility] Not Available Not Available 09/04/2024 11:21:26 06/14/20 24 06/15/2024 Patho logy study pathology study [facility] [place] [address] Teleph one: [phone], extens ion [id number] Pathol ogy Report Periph eral Smear Report Name: SHELBY RANDY Jessica, ALEXANDER HA Adair Specim en #: [id number] Age: [birth year] (Age: 43) Locati on: [facility] Sex: F Proced ure Date: Hospit al #: [id number] Date Receiv ed: Date Report ed: 024 Provid er: KEKE HOOVER MD PHD GENESIS DWYER MD Source : [facility] eral blood Clinic al Histor y: Vitami n B12 defici ency anemia , hemoly sis concer n, acute anemia FINAL DIAGNO SIS: Periph eral blood, smear review : -Pancy topeni a, see commen t. Diagno sis Commen t: Review of the periph eral blood smear demons trates pancyt openia includ ing modera te to severe normoc ytic anemia , mild thromb ocytop enia, and leukop enia second erika to neutro penia, monocy topeni a, and lympho penia. Occasi onal hypers egment ed neutro phils are presen t. No signif icant schist ocyte popula tion is identi fied. No blasts are identi fied. Ava carr for pancyt openia includ e nutrit ional defici encies , toxins , drugs/ medica tions, viral infect ion, certai n immune disord ers, primar y bone marrow neopla sms, and bone marrow replac ement (fibro sis, metast asis, granul omas), amongs t others . Of note, hypers egment ed neutro phils can be seen with vitami n B12 and/or folate defici ency, sepsis , alcoho l abuse, underl lucio myeloi d disord ers, and heredi tary condit ions, amongs t others . Elec tronic ally Signed Out Jt carnes M.D. INTERP RETATI ON: Periph eral Blood Commen ts: Red Blood Cells: The hemogl obin is decrea sed to 8.1 g/dL. The red blood cells are genera lly normoc ytic and normoc hromic with marked anisoc ytosis , scatte red teardr op cells, and occasi onal nuclea wilma red blood cells. No signif icant schist ocyte or sphero cyte popula tion is identi fied. White Blood Cells: The white blood cell count is decrea sed to 2.52 x 10^3/u L second erika to neutro penia, lympho penia, and monocy topeni a. Occasi onal hypers egment ed neutro phils are presen t. No blasts are identi fied. Platel ets: The platel et count is mildly decrea sed to 125 x 10^3/u L. The platel ets show no signif icant morpho logic abnorm alitie s. Interp retati on and sign out were perfor med at [facility], [address], [place] [address]. PATHO LOGY [facility] [address] [place] [address] Telep ree: , exten ramin [id number] Patho logy Repor t Perip heral Smear Repor t Name: CLAUDIOI NGSWO RTH, SANCHEZ DIANE S Speci men #: [id number] Age: [birth year] (Age: 43) Locat ion: [facility] Sex: F Proce dure Date: 2023 Hospi shannon #: [id number] Date Recei cris: 2023 Date Repor wilma: 2023 Provi javed: KEKE Hernandez MD, PHD WRENSHALLABBIE Beebe MD [facility] e: Perip heral blood Clini angella Histo ry: Vitam in B12 defic iency anemi a, hemol ysis tyler rn, acute anemi a FINAL DIAGN OSIS: Perip heral blood , smear revie w: -Panc ytope mendoza, see comme nt. Diagn osis Comme nt: Revie w of the perip heral blood smear demon strat es pancy topen ia inclu ding moder ate to sever e normo cytic anemi a, mild throm bocyt openi a, and leuko penia secon alisha to neutr openi a, monoc ytope mendoza, and lymph openi a. Occas ional hyper segme nted neutr ophil s are prese nt. No signi fican t schis tocyt e popul ation is ident ified . No blast s are ident ified . Etiol ogies for pancy topen ia inclu de nutri tom l defic ienci es, toxin s, drugs /medi catio ns, viral infec tion, certa in immun e disor ders, prima ry bone marro w neopl asms, and bone marro w repla cemen t (fibr osis, metas tasis , granu summer ), among st other s. Of note, hyper segme nted neutr ophil s can be seen with vitam in B12 and/o r folat e defic iency , sepsi s, alcoh ol abuse , under lying myelo id disor ders, and hered itary condi tions , among st other s. Jaylyn ctron icall y Bee d Out Jt nicole M.D. INTER PRETA TION: Perip heral Blood Comme nts: Red Blood Cells : The hemog lobin is decre ased to 8.1 g/dL. The red blood cells are gener ally normo cytic and normo chrom ic with marke d aniso cytos is, scatt ered teard rop cells , and occas ional nucle ated red blood cells . No signi fican t schis tocyt e or spher ocyte popul ation is ident ified . White Blood Cells : The white blood cell count is decre ased to 2.52 x 10^3/ uL secon alisha to neutr openi a, lymph openi a, and monoc ytope mendoza. Occas ional hyper segme nted neutr ophil s are prese nt. No blast s are ident ified . Plate lets: The plate let count is mildl y decre ased to 125 x 10^3/ uL. The plate lets show no signi fican t morph ologi c abnor malit ies. Inter preta tion and sign out were perfo rmed at [facility], [address], [place] [address] . [facility] Not Available Not Available 09/04/2024 11:21:26 07/24/19 25 07/24/2024 LIPID PANEL cholesterol, total 153 mg/dL 100-19 9 Not Available [facility] Department [address] [place], [address], 07/24/2024 21:08:50 07/24/19 25 07/24/2024 LIPID PANEL triglyceride s 43 mg/dL 0-149 Not Available [facility] Department [address] [place], [address], 07/24/2024 21:08:50 07/24/19 25 07/24/2024 LIPID PANEL HDL cholesterol 71 mg/dL 40-999 Not Available [facility] Department [address] [place], [address], 07/24/2024 21:08:50 07/24/19 25 07/24/2024 LIPID PANEL VLDL cholesterol angella 9 mg/dL 5-40 Not Available [facility] Department [address] [place] [address], [address], 07/24/2024 21:08:50 07/24/19 25 07/24/2024 LIPID PANEL LDL chol calc (nih) 78 mg/dL 0-99 Not Available [facility] Department [address] [place] [address], [address], 07/24/2024 21:08:50 07/24/19 25 07/24/2024 COMP. METAB OLIC PANEL (14) glucose 103 mg/dL 70-99 above high normal Not Available [facility] Department [address] [place] [address], [address], 07/24/2024 21:08:51 07/24/19 25 07/24/2024 COMP. METAB OLIC PANEL (14) BUN 12 mg/dL 6-24 Not Available [facility] Department [address] [place] [address], [address], 07/24/2024 21:08:51 07/24/19 25 07/24/2024 COMP. METAB OLIC PANEL (14) creatinine 0.57 mg/dL 0.76-1 .27 below low normal Not Available [facility] Department [address] [place] [address], [address], 07/24/2024 21:08:51 07/24/19 25 07/24/2024 COMP. METAB OLIC PANEL (14) eGFR 115 >=60 Units for eGFR value s are mL/mi n/1.7 3 The eGFR Calcu latio n has not been valid ated for patie nts under the age of 18. If test resul ts are displ ayed for a patie nt under the age of 18, disre katherine that value . Not Available [facility] Department [address] [place] [address], [address], 07/24/2024 21:08:51 07/24/19 25 07/24/2024 COMP. METAB OLIC PANEL (14) BUN/creatini ne ratio 22 9-23 Not Available [facility] Department [address] [place], [address], 07/24/2024 21:08:51 07/24/19 25 07/24/2024 COMP. METAB OLIC PANEL (14) sodium 137 mmol/ L 134-14 4 Not Available [facility] Department [address] [place] [address], [address], 07/24/2024 21:08:51 07/24/19 25 07/24/2024 COMP. METAB OLIC PANEL (14) potassium 4.0 mmol/ L 3.5-5. 2 Not Available [facility] Department [address] [place] [address], [address], 07/24/2024 21:08:51 07/24/19 25 07/24/2024 COMP. METAB OLIC PANEL (14) chloride 103 mmol/ L 96-106 Not Available [facility] Department [address] [place], [address], 07/24/2024 21:08:51 07/24/19 25 07/24/2024 COMP. METAB OLIC PANEL (14) carbon dioxide, total 27 mmol/ L 20-29 Not Available [facility] Department [address] [place] [address], [address], 07/24/2024 21:08:51 07/24/19 25 07/24/2024 COMP. METAB OLIC PANEL (14) calcium 9.2 mg/dL 8.7-10 .2 Not Available [facility] [address] [place], [address], 07/24/2024 21:08:51 07/24/19 25 07/24/2024 COMP. METAB OLIC PANEL (14) protein, total 7.3 g/dL 6.0-8. 5 Not Available [facility] Department [address] [place] [address], [address], 07/24/2024 21:08:51 07/24/19 25 07/24/2024 COMP. METAB OLIC PANEL (14) albumin 4.3 g/dL 3.9-4. 9 Not Available [facility] Department [address] [place] [address], [address], 07/24/2024 21:08:51 07/24/19 25 07/24/2024 COMP. METAB OLIC PANEL (14) globulin, total 3.0 g/dL 1.5-4. 5 Not Available [facility] [address] [place] [address], [address], 07/24/2024 21:08:51 07/24/19 25 07/24/2024 COMP. METAB OLIC PANEL (14) A/G ratio 1.0 1.2-2. 2 below low normal Not Available [facility] Department [address] [place] [address], [address], 07/24/2024 21:08:51 07/24/19 25 07/24/2024 COMP. METAB OLIC PANEL (14) bilirubin, total 0.3 mg/dL 0.0-1. 2 Not Available [facility] [address] [place] [address], [address], 07/24/2024 21:08:51 07/24/19 25 07/24/2024 COMP. METAB OLIC PANEL (14) alkaline phosphatase 80 IU/L 44-121 Not Available [facility] Department [address] [place] [address], [address], 07/24/2024 21:08:51 07/24/19 25 07/24/2024 COMP. METAB OLIC PANEL (14) AST (SGOT) 15 IU/L 0-40 Not Available [facility] Department [address] [place] [address], [address], 07/24/2024 21:08:51 07/24/19 25 07/24/2024 COMP. METAB OLIC PANEL (14) ALT (SGPT) 13 IU/L 0-32 Not Available [facility] Department [address], [place], [address], 07/24/2024 21:08:51 07/24/19 25 07/25/2024 TSH+F REE T4 TSH 1.140 uIU/m L 0.450- 4.500 Not Available [facility] ([facility]) [address] [place], [address], 07/25/2024 03:36:20 07/24/19 25 07/25/2024 TSH+F REE T4 T4,free(dire ct) 1.04 NG/dL 0.82-1 .77 Not Available [facility] ([facility]) [address] [place], [address], 07/25/2024 03:36:20 07/24/19 25 07/24/2024 HEMOG LOBIN A1C hemoglobin A1C 4.9 % 4.8-5. 6 Predi abete s: 5.7 - 6.4 Diabe jeanna: >6.4 Glyce karla contr ol for adult s with diabe jeanna: <7.0 Not Available [facility] ([facility]) [address] [place], [address], 07/25/2024 03:36:22 07/24/19 25 07/25/2024 RPR, RFX QN RPR/C ONFIR M TP RPR Reacti ve nonrea ctive abnormal Not Available [facility] ([facility]) [address] [place], [address], 07/27/2024 11:08:53 07/24/19 25 07/25/2024 RPR QN+TP ABS RPR, quant. 1:4 titer nonrea <1:1 above high normal Not Available [facility] ([facility]) [address] [place], [address], 07/27/2024 11:08:54 07/24/19 25 07/25/2024 RPR QN+TP ABS interpretati on: Commen t Syphi lis: RPR with Refle x to RPR Titer and Trepo nemal Antib odies , Tradi tom l Scree sarah and Diagn osis Algor ithm ----- ----- ----- ----- ----- ----- ----- ----- ----- ----- ----- ----- Trepo nemal RPR RPR, Qn Ab Final Inter preta tion ----- --- ----- ---- ----- ----- ----- ----- ----- ----- ---- Non N/A N/A No labor atory evide nce React lia of syphi lis. Retes t in 2-4 weeks if recen t expos ure us suspe cted. ----- --- ----- ---- ----- ----- ----- ----- ----- ----- ---- React lia >/=1: 1 Non Nontr epone mal antib odies React lia detec wilma. Syphi lis unlik alexandr; biolo gical false posit lia possi ble. Retes t in 2-4 weeks if recen t expos ure is suspe cted. ----- --- ----- ---- ----- ----- ----- ----- ----- ----- ---- React lia >/=1: 1 React lia Trepo nemal and nontr epone mal antib odies detec wilma. Consi stent with past or curre nt (pote ntial early ) syphi lis. Not Available [facility] ([facility]) [address] [facility], [place], [address], 07/27/2024 11:08:54 07/24/19 25 07/27/2024 RPR QN+TP ABS treponema pallidum antibodies Reacti ve nonrea ctive abnormal Not Available [facility] ([facility]) [address] [facility], [place], [address], 07/27/2024 11:08:54 07/24/19 25 07/26/2024 NUA B VAGIN ITIS PLUS (VG+) atopobium vaginae LOW - 0 score Not Available [facility] ([facility]) [address] [facility], [place], [address], 07/27/2024 21:07:19 07/24/19 25 07/26/2024 NUA B VAGIN ITIS PLUS (VG+) bvab 2 LOW - 0 score Not Available [facility] ([facility]) [address] [facility], [place], [address], 07/27/2024 21:07:19 07/24/1907/26/2024 NUA B VAGIN ITIS PLUS (VG+) megasphaera 1 LOW - 0 score Calcu late total score by ruth g the 3 indiv idual bacte rial vagin osis (BV) marke r score s toget her. Total score is inter prete d as follo ws: Total score 0-1: Indic ates the absen ce of BV. Total score 2: Indet ermin ate for BV. Addit ional clini angella data shoul d be evalu ated to estab feliberto a diagn osis. Total score 3-6: Indic ates the prese nce of BV. Not Available [facility] ([facility]) [address] [facility], [place], [address], 07/27/2024 21:07:19 07/24/1907/26/2024 NUA B VAGIN ITIS PLUS (VG+) nette albicans, MANDO NEGATI VE negati ve Not Available [facility] ([facility]) [address] [facility], [place], [address], 07/27/2024 21:07:19 07/24/1907/26/2024 NUA B VAGIN ITIS PLUS (VG+) nette glabrata, MANDO NEGATI VE negati ve Not Available [facility] ([facility]) [address] [facility], [place], [address], 07/27/2024 21:07:19 07/24/19 25 07/27/2024 NUA B VAGIN ITIS PLUS (VG+) trich vag by MANDO NEGATI VE negati ve Not Available [facility] ([facility]) [address] [facility], [place], [address], 07/27/2024 21:07:19 07/24/19 25 07/27/2024 NUA B VAGIN ITIS PLUS (VG+) chlamydia trachomatis, MANDO NEGATI VE negati ve Not Available [facility] ([facility]) [address] [facility], [place], [address], 07/27/2024 21:07:19 07/24/19 25 07/27/2024 NUA B VAGIN ITIS PLUS (VG+) neisseria gonorrhoeae, MANDO NEGATI VE negati ve Not Available [facility] ([facility]) [address] [facility], [place], [address], 07/27/2024 21:07:19 02/20/20 25 02/20/2025 RPR, RFX QN RPR/C ONFIR M TP RPR REACTI VE nonrea ctive abnormal Not Available [facility] ([facility]) [address] [facility], [place], [address], 02/22/2025 15:10:53 02/20/2002/20/2025 RPR QN+TP ABS RPR, quant. 1:4 titer nonrea <1:1 above high normal Not Available [facility] ([facility]) [address] [place], [address], 02/22/2025 15:10:54 02/20/2002/20/2025 RPR QN+TP ABS interpretati on: Commen t Syphi lis: RPR with Refle x to RPR Titer and Trepo nemal Antib odies , Tradi tom l Scree sarah and Diagn osis Algor ithm ----- ----- ----- ----- ----- ----- ----- ----- ----- ----- ----- ----- Trepo nemal RPR RPR, Qn Ab Final Inter preta tion ----- --- ----- ---- ----- ----- ----- ----- ----- ----- ---- Non N/A N/A No labor atory evide nce React lia of syphi lis. Retes t in 2-4 weeks if recen t expos ure is suspe cted. ----- --- ----- ---- ----- ----- ----- ----- ----- ----- ---- React lia >/=1: 1 Non Nontr epone mal antib odies React lia detec wilma. Syphi lis unlik alexandr; biolo gical false posit lia possi ble. Retes t in 2-4 weeks if recen t expos ure is suspe cted. ----- --- ----- ---- ----- ----- ----- ----- ----- ----- ---- React lia >/=1: 1 React lia Trepo nemal and nontr epone mal antib odies detec wilma. Consi stent with past or curre nt (pote ntial early ) syphi lis. Not Available [facility] ([facility]) [address] [facility], [place], [address], 02/22/2025 15:10:54 02/20/2002/22/2025 RPR QN+TP ABS treponema pallidum antibodies Reacti ve nonrea ctive abnormal Not Available [facility] ([facility]) [address] [facility], [place], [address], 02/22/2025 15:10:54 10/17/19 23 10/16/2022 US, trans vagin al No observ ation record ed. [email or web address] [address] [place], [address], 11/06/2022 13:41:57 08/03/19 25 08/03/2024 XR, knee, 3 view No observ ation record ed. [facility] [address] , [place], [address], 08/06/2024 12:26:44 08/03/19 25 08/03/2024 XR, knee, 3 view No observ ation record ed. [facility] [address] , [place], [address], 08/06/2024 12:26:44 09/30/19 25 09/29/2024 MAMMO , scree sarah, bilat eral No observ ation record ed. [facility] [address] [place], [address], 10/01/2024 07:02:29 Result Notes None recorded. Problems Name Problem SNOMED Code Status Onset Date Resolution Date Notes Provider Name and Address Organization Details Recorded Time Morbid obesity 595631537 Active 023 Cecy Cruz RN null, [place] - [place] 3 08:50:43 Problem Notes None recorded. Procedures Surgical History Date Name Laterality Status Provider Name and Address Organization Details Recorded Time 4 IUD Insertion cancelled ROSANGELA VARGAS Attn: Accounting,[address] [facility], [place], [address], [place] - [place] 09/06/2023 11:52:06 8 delivery completed Светлана Arteaga [facility] 08/28/2023 16:27:28 repair of hernia using surgical mesh completed Светлана Arteaga [facility] 08/28/2023 16:28:09 open reduction of dislocation of ankle completed Светлана Arteaga [facility] 08/28/2023 16:28:48 Imaging Results None recorded. Procedure Notes None recorded. Medical Equipment None Reported. Allergies Allergen ID Allergen Name Allergen Category Reaction Reaction Severity Criticality Documentation Date Start Date Code Code System Note Provider Name and Address Organization Details Recorded Time 641403 Latex (substanc e) environme nt,medica tion Not available Not available Not available 08/28/2023 64597 8007 SNOMED MICHAEL Peters [facility] 16:16:35 472996 morphine medicatio n Not available Not available Not available 08/28/2023 7052 RxNorm Светлана ViverosbradyanaMICHAEL [facility] 16:16:56 Medications Name Sig Start Date Stop Date Status Note LastModified by Organization Details LastModified Time fluconazole 100 mg tablet TAKE 1 TABLET BY MOUTH DAILY active Not Available Not Available No t Available azithromyci n 250 mg tablet 08/28 completed Not Available Not Available Not Available metronidazo le 500 mg tablet TAKE 1 TABLET BY MOUTH EVERY 12 HOURS 03/26 completed Not Available Not Available Not Available phentermine 37.5 mg tablet TAKE 1 TABLET BY MOUTH DAILY. TAKE 30 MINUTES BEFORE OR 1-2 HOURS AFTER BREAKFAST active Not Available Not Available No t Available sulfamethox azole 800 mg-trimetho prim 160 mg tablet Take 1 tablet every 12 hours by oral route for 10 days. 08/28 completed Not Available Not Available Not Available amoxicillin 500 mg tablet 07/19 completed Not Available Not Available Not Available meloxicam 7.5 mg tablet 08/28 completed Not Available Not Available Not Available cephalexin 500 mg capsule Take 1 capsule every 6 hours by oral route. 07/19 completed Not Available Not Available Not Available erythromyci n 5 mg/gram (0.5 %) eye ointment 08/28 completed Not Available Not Available Not Available cyanocobala min (vit B-12) 1,000 mcg/mL injection solution INJECT 1000MCG UNDER THE SKIN DIRECTED EVERY 30 DAYS active Not Available Not Available No t Available ferrous sulfate 325 mg (65 mg iron) tablet Take 1 tablet every day by oral route. 2022 active Not Available Not Available Not Avai lable losartan 25 mg tablet TAKE 1 TABLET BY MOUTH EVERY DAY active Not Available Not Available No t Available ibuprofen 600 mg tablet 08/28 completed Not Available Not Available Not Available methylpredn isolone 4 mg tablets in a dose pack 08/28 completed Not Available Not Available Not Available albuterol sulfate HFA 90 mcg/actuati on aerosol inhaler active Not Available Not Available Not Available penicillin G benzathine 2,400,000 unit/4 mL intramuscul ar syringe Inject 2.4 million units by intramusc ular route. 2024 active Not Available Not Available Not Avai lable nitrofurant oin monohydrate /macrocryst als 100 mg capsule 07/19 completed Not Available Not Available Not Available BD Integra Syringe 3 mL 25 gauge x 5/8 USE ONCE WEEKLY FOR 8 DOSES active Not Available Not Available No t Available Lactobacill us acidophilus 500 million cell tablet Take 1 tablet every day by oral route for 30 days. 2024 active Not Available Not Available Not Avai lable Vitals Date Recorded Body height Body mass index (BMI) Body weight Oxygen saturation Oxygen saturation in Arterial blood by Pulse oximetry Heart rate Body temperature Systolic And Diastolic Provider Name and Address Organization Details Last Updated DateTime 167.64 cm 46.6 kg/m2 233737. 19 g 99 % 99 % 69 /min 98.3 [degF] 125/84 mm[Hg] Faith Garcia [place] - [facility] 5 09:40:06 Date Recorded Body height Body mass index (BMI) Body weight Systolic And Diastolic Provider Name and Address Organization Details Last Updated DateTime 07/30/2024 167.64 cm 45.5 kg/m2 209356.05 g 123/75 mm[Hg] Faith Garcia [place] [facility] 07/30/2024 14:35:54 Date Recorded Body height Body mass index (BMI) Body weight Heart rate Systolic And Diastolic Provider Name and Address Organization Details Last Updated DateTime 08/28/2023 167.64 cm 47.5 kg/m2 844779.3 1 g 88 /min 127/89 mm[Hg] Светлана Arteaga [facility] 08/28/2023 16:31:23 Date Recorded Body height Body mass index (BMI) Body weight Oxygen saturation Oxygen saturation in Arterial blood by Pulse oximetry Heart rate Respiratory rate Body temperature Systolic And Diastolic Provider Name and Address Organization Details Last Updated DateTime 3 167.64 cm 48.3 kg/m2 376510. 92 g 100 % 100 % 89 /min 15 /min 98 [degF] 121/85 mm[Hg] Melva Jara MA [facility] 3 16:36:23 Date Recorded Body height Body mass index (BMI) Body weight Oxygen saturation Oxygen saturation in Arterial blood by Pulse oximetry Heart rate Respiratory rate Body temperature Systolic And Diastolic Provider Name and Address Organization Details Last Updated DateTime 3 167.64 cm 49.2 kg/m2 470369. 67 g 98 % 98 % 80 /min 18 /min 97.7 [degF] 141/86 mm[Hg] Melva Jara MA [facility] 3 16:25:04 Social History Question Answer Notes LastModified by Organizat ion Details LastModified Time Tobacco Smoking Status Never Smoker Melva Jara MA null, [facility] 07/19/2022 09:47:33 Are You Blind Or Do You Have Difficulty Seeing? No Information not available 08/28/2023 What Is Your Level Of Caffeine Consumption? Moderate Information not available 08/28/2023 Are You Deaf Or Do You Have Serious Difficulty Hearing? No Information not available 08/28/2023 What Type Of Diet Are You Following? REGULAR Information not available 08/28/2023 What Was The Date Of Your Most Recent Tobacco Screening? 08/28/2023 Information not available 08/28/2023 How Many Children Do You Have? 3 Information not available 08/28/2023 What Is Your Relationship Status? Single Information not available 08/28/2023 Do You Use Your Seat Belt Or Car Seat Routinely? Yes Information not available 08/28/2023 Are You Sexually Active? No Information not available 08/28/2023 Do You Have Smoke And Carbon Monoxide Detectors In Your Home? Yes Information not available 08/28/2023 Are You Passively Exposed To Smoke? No Information no t available 08/28/2023 Has Tobacco Cessation Counseling Been Provided? Yes Information not available 08/28/2023 On What Date Was Tobacco Cessation Counseling Provided? 08/28/2023 Information not available 08/28/2023 Sex: Female Functional Status Question Answer Note LastModified by Organizat ion Details LastModified Time Do you use any illicit or recreational drugs? No Information not available 08/28/2023 Do you or have you ever used any other forms of tobacco or nicotine? Yes Information not available 08/28/2023 What is your level of alcohol consumption? None Information not available 08/28/2023 Do you or have you ever used smokeless tobacco? Never used smokeless tobacco Information not available 08/28/2023 Are you currently employed? Yes Information not available 08/28/2023 Are you able to care for yourself independently? Yes Information not available 08/28/2023 Do you or have you ever used e-cigarettes or vape? Never used electronic cigarettes Information not available 08/28/2023 What is your exercise level? Occasional Information not available 08/28/2023 Mental Status None recorded. Family History Relationship Description Onset Age of this Age Resolved Age Notes LastModified by Organization Details LastModified Time Father Hypertensive disorder [email or web address] Not available 08/28 16:22:47 Brother Hypertensive disorder [email or web address] Not available 08/28 16:22:47 Brother Hypertensive disorder [email or web address] Not available 08/28 16:22:47 Sister Hypertensive disorder [email or web address] Not available 08/28 16:22:47 Sister Hypertensive disorder [email or web address] Not available 08/28 16:22:47 Sister Hypertensive disorder [email or web address] Not available 08/28 16:22:47 Medical History Condition Response Anxiety Disorder Y Hypertension Y Gynecological History Statement/Question Response Date of LMP 07/08/2023 Frequency of Cycle (Q days) 28 On BCP's at Conception? N Menses Monthly Y Duration of Flow (days) 5 Age at Menarche 13 Age at First Child 17 LMP Approximate Obstetrics History GPAL:G 3 P 3 0 0 3 Type Value Full Term 3 Living 3 Total 3 Immunizations Vaccine Type Date Status Note Provider Mark hernandez and Address Organization Details Recorded Time COVID-19 vaccine, vector-nr, rS-Ad26, PF, 0.5 mL 10/27/2021 completed RACHEL STONE NP Attn: Accounting[address] [facility], [place], [address], [place] [facility] 07/19/2022 09:46:27 COVID-19 vaccine, vector-nr, rS-Ad26, PF, 0.5 mL 07/04/2021 completed Genesis Parker MA [facility], [place] - [facility] 07/04/2021 15:23:53 Past Encounters Encounter ID Performer Location Encounter Start Date Encounter Closed Date Diagnosis/Indication Diagnosis SNOMED-CT Code Diagnosis ICD10 Code Diagnosis IMO Codes Diagnosis Note [id number] Jose Miguel Sagastume MD [facility] [address] [place] [address] 05/30/2021 10:38:32 06/05/2021 13:39:10 Lump of subareolar area of right breast [id number] 5646387 N63.41 patient instructed on importance of finishing abx. Will proceed with US-guided bx/drainag e if mammograph y shows no other suspicious areas Screening mammography of bilateral breasts 2136403104 15357 Z12.31 patient due for screening mammograph y. Likely abscess of R subareolar region has been categorize d as birads 4, suspicious , and will need, bx, but need to get mammograph y first to R/O other suspicious areas. [id number] Billy Gandhi MD [facility] [address] [place] [address] 07/04/2021 12:37:19 10/09/2021 18:00:58 Administration of SARS-CoV-2 antigen vaccine 725797842 Z23 [id number] Chon Combs MD [facility] ([facility]) [address] [place], [place] [address] 07/19/2022 09:35:42 07/20/2022 10:54:03 Vaginal discharge 891663693 N89.8 Discussed with patient running [employer] and will notify of results.Pt to wipe front to back when defecating or urinating. Screening for malignant neoplasm of cervix 187090800 Z12.4 Adult heal th examination 721079060 Z00.00 Pt to have routine labs completed. Will notify of results.Ed ucated patient on diet (Mediterra nean) and exercise (30-60 min daily)Disc ussed medication adherence. Pt verbalized understand ing. Morbid obesity 881574392 E66.01 Pt to begin to engage in the following: -Healthy sleep hygiene (phone put away at night, lights out, set bedtime with at least 8 hours sleep)-Exe rcise 30-60 min daily-Make healthy diet choices (Mediterra nean)-Drin k only water or green tea [id number] Chon Combs MD [facility] ([facility]) [address] [place] [address] 8 09/04/2022 15:43:49 09/05/2022 14:09:16 Abscess of breast 11455889 N61.1 Pt to take abx as prescribed . Pt to RTC in two weeks for follow up if not improved. Screening mammography of bilateral breasts 4388789055 36148 Z12.31 Morbid obesity 153957373 E66.01 Pt to begin to engage in the following: -Healthy sleep hygiene (phone put away at night, lights out, set bedtime with at least 8 hours sleep)-Exe rcise 30-60 min daily-Make healthy diet choices (Mediterra nean)-Drin k only water or green tea Vaginal di scharge problem 407628360 N89.9 [id number] Chon Combs MD [facility] ([facility]) [address] [place] [address] 8 09/28/2022 16:17:02 10/04/2022 11:08:25 Vaginal discharge 813452677 N89.8 Discussed with patient running nuab and will notify of results.Pt to wipe front to back when defecating or urinating. Essential hypertension 66856498 I10 THe patient's blood pressure is 141/86. Pt has not taken her medication today.Disc ussed with patient the goal of having a blood pressure of <140/90.Pt to monitor blood pressure at home and notify of >140/90 or <90/60.Edu cated on the risks of a heart attack, stroke, kidney damage, or additional issues if blood pressure is outside of recommende d ranges. Pt verbalized understand ing.Pt to RTC in two weeks for reassessme nt if BP remaining >140/90 Morbid obesity 817354285 E66.01 Pt to begin to engage in the following: -Healthy sleep hygiene (phone put away at night, lights out, set bedtime with at least 8 hours sleep)-Exe rcise 30-60 min daily-Make healthy diet choices (Mediterra douglas)-David garza only water or green tea [id number] Kandi River MD [facility] ([facility]) [address] [place] [address] 08/28/2023 15:28:30 09/03/2023 10:19:56 Gynecologic examination 92125507 Z01.419 Normal gynecologi c exam today.Cerv ical cancer screening: Last Pap 07/19/22--N ILM, -hrHPV. Due 2027.Ann t cancer screening: Reviewed recommenda tions for initiation at age 40 with annual screening. Discussed SBEColonos copy: n/aSTI screening: nuswab, treat as needed. Safe sex practices discussed. Contracept ion: abstinence Diet/exerc ise: Counseled regarding importance of physical activity, healthy diet and appropriat e calcium intake.RTC in 1yr Vaginal odor 421775865 N 89.8 -Longstand ing, present x 2 years. Denies discharge, itching, irritation , pelvic pain, AUB. Denies intercours e x 2 years. Denies urinary symptoms.- Exam unremarkab le-Nuswab collected, will treat as indicated. Nuswab (-) x 2--08/2022 and 09/2022.-We ar loose cotton clothing. Do not wear nylon or other fabric that holds body heat and moisture close to the skin. Do not scratch. Relieve itching with a cold pack or a cool bath. Do not wash your vaginal area more than once a day. Use plain water or a mild, unscented soap. Use condoms to prevent STIs. Menorrhagia 340127006 N9 2.0 -Longstand ing hx menorrhagi a-US 10/16/22: 10.4 cm uterus, EMS 0.5 cm. Multiple fibroids, measuring 2.9-5.8 cm.-Discus sed pathophys of fibroids. Discussed medication vs surgical interventi ons. Given HTN, recommend avoiding estrogen. Reviewed progestero ne only options including POPs vs DMPA vs Nexplanon vs IUD. Declines POPs due to hx nausea with pills as teenager. Declines DMPA due to weight gain.-Pt interested in IUD. Reviewed SEs and RFs including changes in bleeding pattern. Informatio n packet provided.- Pt scheduled for insertion 09/06/23. Venereal d isease screening 896123351 Z11.3 -will treat as indicated. Screening for malignant neoplasm of breast 066021180 Z12.39 -No breast complaints . No FMHx breast cancer-CBE unremarkab le.-Mammog jose order provided. Morbid obesity 412426073 E66.01 BMI 47.5 [id number] Chon Combs MD [facility] ([facility]) [address] [place] [address] 07/24/2024 09:10:34 07/31/2024 08:35:51 Morbid obesity 244776323 E66.01 Pt to begin to engage in the following: -Healthy sleep hygiene (phone put away at night, lights out, set bedtime with at least 8 hours sleep)-Exe rcise 30-60 min daily-Make healthy diet choices (Chelle douglas)-David garza only water or green tea Vaginal discharge 353238 006 N89.8 Plan of care:-Will check new swab-Patie nt to take probiotic routinely since hx of vaginal

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
[2025-05-10] MEDS: ACETAMINOPHEN 325 MG TABLET 650 MG PO (19:27)
[2025-05-10] MEDS: HYDROcodone/acetaminophen (*CRX) 5-325 MG TABLET 1 TAB PO (19:27)
[2025-05-10] MEDS: CYCLOBENZAPRINE HCL 10 MG TABLET PO (22:29)
[2025-05-10 23:01] LABS: Hematocrit 33.2 % (37.0-47.0); Hemoglobin 10.2 g/dL (12.0-15.0); Immature Granulocyte Percent A 0.0 % (0-0.5); Lymphocytes Absolute Auto 1.62 K/mm3 (0.9-3.2); Mean Corpuscular HGB Conc 30.7 g/dl (32-36); Mean Corpuscular Hemoglobin 25.6 pg (26-34); Mean Corpuscular Volume 83.2 fl (80-100); Nucleated Red Blood Cells Absolute Auto 0.000 K/mm3 (0.0-0.012); Nucleated Red Blood Cells Perc 0.0 % (0.0-0.2); Platelet Count Result 174 k/mm3 (150-375); Red Blood Count 3.99 M/mm3 (4.2-5.4); White Blood Count 3.8 K/mm3 (4.5-10.0)
[2025-05-10 23:13] LABS: Anion Gap 7 mmol/L (4-12); Blood Urea Nitrogen 17 mg/dL (7-17); Calcium 8.7 mg/dL (8.4-10.2); Carbon Dioxide 25 mmol/L (22-30); Chloride 104 mmol/L (98-107); Estimated Glomerular Filt Rate > 60; Glucose 102 mg/dL (65-110); Potassium 3.5 mmol/L (3.4-5.0); Sodium 136 mmol/L (137-145)
[2025-05-11] VITALS (7 sets, daily range): BP systolic 102–137; BP diastolic 53–81; PULSE 55–91; RESP 14–70; TEMP 36.1–36.4; O2SAT 95–100; BMI 51.3
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
[2025-05-11] MEDS: IBUPROFEN 600 MG TABLET PO ×4 (02:24→21:01)
--- NOTE | 2025-05-11 02:49 | ADMGEN ---
This patient, Frandy Mejia, was admitted to 2 Medical Room 259-01 @0230. Received report from Lizett in ER. Patient/family oriented to hospital policies and general routines including ID bracelet, bed and alarms, visiting hours, pain management, procedures, bathroom and other care routines, personal items, smoking policy, room service/diet, and visiting hours. Information on how to activate the Rapid Response Team has been discussed. Patient/Family are encouraged to report perceived risks to care and to ask questions if they do not understand what they are told or what they should do.
[2025-05-11 04:49] LABS: Hematocrit 33.0 % (37.0-47.0); Hemoglobin 10.1 g/dL (12.0-15.0); Immature Granulocyte Percent A 0.0 % (0-0.5); Lymphocytes Absolute Auto 1.29 K/mm3 (0.9-3.2); Mean Corpuscular HGB Conc 30.6 g/dl (32-36); Mean Corpuscular Hemoglobin 25.9 pg (26-34); Mean Corpuscular Volume 84.6 fl (80-100); Nucleated Red Blood Cells Absolute Auto 0.000 K/mm3 (0.0-0.012); Nucleated Red Blood Cells Perc 0.0 % (0.0-0.2); Platelet Count Result 161 k/mm3 (150-375); Red Blood Count 3.90 M/mm3 (4.2-5.4); White Blood Count 2.7 K/mm3 (4.5-10.0)
[2025-05-11 05:03] LABS: Alanine Aminotransferase 13 U/L (6-35); Albumin Level 4.1 g/dL (3.5-5.1); Alkaline Phosphatase 58 U/L (38-126); Anion Gap 6 mmol/L (4-12); Aspartate Amino Transferase 20 U/L (14-36); Bilirubin,Total 0.6 mg/dL (0.2-1.3); Blood Urea Nitrogen 16 mg/dL (7-17); Calcium 8.5 mg/dL (8.4-10.2); Carbon Dioxide 23 mmol/L (22-30); Chloride 107 mmol/L (98-107); Estimated CRCL calculation 155 ml/min; Estimated Glomerular Filt Rate > 60; Glucose 89 mg/dL (65-110); Magnesium 1.9 mg/dL (1.6-2.3); Potassium 3.8 mmol/L (3.4-5.0); Sodium 136 mmol/L (137-145); Total Protein 7.5 g/dL (6.3-8.2)
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
[2025-05-11] MEDS: LIDOCAINE 5% PATCH 1 PATCH TRANSDERM (08:37)
[2025-05-11] MEDS: ACETAMINOPHEN 500 MG TABLET 1000 MG PO ×2 (11:18→19:19)
[2025-05-11] MEDS: CYCLOBENZAPRINE HCL 5 MG TABLET PO (12:35)
[2025-05-12 04:51] VITALS: BP 142/86; PULSE 71; RESP 20; TEMP 36.5; O2SAT 100
[2025-05-12] MEDS: IBUPROFEN 600 MG TABLET PO ×2 (05:00→13:11)
[2025-05-12] MEDS: LIDOCAINE 5% PATCH 1 PATCH TRANSDERM (08:38)
[2025-05-12] MEDS: ENOXAPARIN 40 MG/0.4 ML SYRINGE SUB-Q (08:38)
[2025-05-12 13:52] VITALS: BP 135/75; PULSE 74; RESP 16; TEMP 36.7; O2SAT 99
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
== END 2025-05-12 18:00 | disposition home or self-care (01) ==
LOC: ANHED 05-11 00:35 → ANH2MED 05-11 06:47 → ANH3MEDSUR 05-13 07:08
PROVIDERS: Admitting Provider General Practice; Emergency Provider Physician Assistant; PCP Midwife; Visit Provider Family Medicine
DX: R51.9 Headache, unspecified (principal); R26.81 Unsteadiness on feet; M25.562 Pain in left knee; M25.561 Pain in right knee; M25.532 Pain in left wrist; M25.541 Pain in joints of right hand; V89.2XXA Person injured in unspecified motor-vehicle accident, traffic, initial encounter; W22.10XA Striking against or struck by unspecified automobile airbag, initial encounter; I10 Essential (primary) hypertension; D50.9 Iron deficiency anemia, unspecified; E53.8 Deficiency of other specified B group vitamins; Z87.891 Personal history of nicotine dependence; E66.01 Morbid (severe) obesity due to excess calories; Z68.43 Body mass index [BMI] 50.0-59.9, adult
CPT/HCPCS: 36415; 70450; 72125; 73100; 73140; 73560; 73700; 80048; 80053; 83735; 85025; 96372; 97110; 97116; 97161; 97166; 97535; 99285; A9270; G0378; J1650